=== PATIENT | female | born 1990 | race Caucasian/White ===

== ENCOUNTER 2019-06-11 21:24 | Inpatient (IN) | payer OTHER ==
--- NOTE | 2019-06-11 21:49 | PDOC ---
Rapid Medical Evaluation Chief Complaint: Bite Time Seen by Provider: 06/11/19 21:41 Medical Evaluation: 06/11/19 21:42 28 year old female with redness and swelling to left lower quadrant with erythema, warmth and swelling with pain. patient noted to be febrile. A: abdominal cellulitis p: labs Discharge Disposition - Diagnosis Cellulitis of left abdominal wall - Referrals - Patient Instructions - Post Discharge Activity
[2019-06-11] MEDS ORDERED: SODIUM CHLORIDE 0.9% 500 ML INFUS.BAG IV ONE (21:53)
[2019-06-11] MEDS ORDERED: ACETAMINOPHEN 500 MG TABLET (FP) PO ONE (21:54)
[2019-06-11] MEDS ORDERED: SODIUM CHLORIDE 2,654 ML IV ONE (21:56)
[2019-06-11] MEDS ORDERED: ACETAMINOPHEN 325 MG TABLET (FP) ONE (21:59)
--- NOTE | 2019-06-11 22:46 | PDOC ---
Attending Attestation - Resident Resident Name: Julian Holland - ED Attending Attestation I have performed the following: I have examined & evaluated the patient, The case was reviewed & discussed with the resident, I agree w/resident's findings & plan, Exceptions are as noted - HPI HPI: 06/11/19 22:40 28F PMH here for evaluation of insect bite. Pt states that she noted a lesion on the skin overlying her LLQ, she wasn't sure if it was a pimple or a bug bite. Lesion progressed, produced purulent drainage and is now surround by erythema that has rapidly progressed since this morning. Denies f/c, n/v, d/c, or other complaints. - Physicial Exam PE: 06/11/19 22:42 Pt distressed, AOx3 LLQ of abdomen with draining lesion, indurated, +fluctuance, surrounded by area of erythema approximately 10cm in radius centered on lesion - Medical Decision Making 06/11/19 22:47 Abdominal wall abscess with surrounding cellulitis f/u labs start abx admit
[2019-06-11 22:59] LABS: HEMATOCRIT 37.7 % (32.4-45.2); HEMOGLOBIN 12.6 GM/dL (10.7-15.3); MCH 31.6 pg (25.7-33.7); MCHC 33.4 g/dl (32.0-36.0); MEAN CELL VOLUME 94.6 fl (80-96); MEAN PLT VOLUME 9.8 fl (7.5-11.1); PLATELET COUNT 205 K/MM3 (134-434); RBC 3.99 M/mm3 (3.60-5.2); RDW 13.5 % (11.6-15.6); WHITE BLOOD COUNT 16.1 K/mm3 (4.0-10.0)
--- NOTE | 2019-06-11 23:06 | PDOC ---
History of Present Illness - General Chief Complaint: Wound Stated Complaint: INSECT BITE Time Seen by Provider: 06/11/19 21:41 History Source: Patient Exam Limitations: No Limitations - History of Present Illness Initial Comments: Johanna Damon is a 28 yo obese F w a pmh of polysubstance abuse and IVDU currently on Buprenorphine who presents to the ER with an extremely painful red lesion on her abdomen. The patient states that she was bit by a spider 2 days ago after which the bite became inflamed and looked like a pimple. The patient states she popped the pimple and a significant amount of pus came out. The patient came to the ER this morning for her bite but then decided to leave. She nor presents to the ER tonight because the lesion has enlarged significant;y and there is a large surrounding area of warmth and erythema that is painful and looks infected. Here in the ER the patient states she has a fever and now feels like her heart is racing. PCP: None PSH: None reported Social Hx: Former IVDU now on buprenorphine, daily smoker, marijuana user Allergies: NKA, NKDA Past History - Past Medical History Allergies/Adverse Reactions: Allergies Allergy/AdvReac Type Severity Reaction Status Date / Time No Known Allergies Allergy Verified 06/11/19 21:45 - Psycho Social/Smoking Cessation Hx Smoking History: Current every day smoker Number of Cigarettes Smoked Daily: 20 Information on smoking cessation initiated: No Hx Alcohol Use: No Drug/Substance Use Hx: No Review of Systems - Review of Systems Able to Perform ROS?: Yes Comments:: CONSTITUTIONAL: Present: Fever, chills Absent: no fatigue EYES: Absent: visual changes ENT: Absent: ear pain, no sore throat CARDIOVASCULAR: Absent: chest pain, no palpitations RESPIRATORY: Absent: cough, no SOB GI: Absent: abdominal pain, no nausea, no vomiting, no constipation, no diarrhea GENITOURINARY: Absent: dysuria, no frequency, no hematuria MUSKULOSKELETAL: Absent: back pain, no arthralgia, no myalgia SKIN: Present: rash NEURO: Absent: headache *Physical Exam - Vital Signs Last Vital Signs Temp Pulse Resp BP Pulse Ox 101.1 F H 120 H 18 142/97 100 06/11/19 21:42 06/11/19 21:42 06/11/19 21:42 06/11/19 21:42 06/11/19 21:42 - Physical Exam Comments: GENERAL: Well-appearing, well-nourished. No apparent distress. HEENT: Normocephalic, atraumatic. PERRL, EOM intact. CARDIOVASCULAR: Tachycardic rate. Normal S1, S2. Regular rhythm. PULMONARY: No evidence of respiratory distress. Lungs clear to auscultation bilaterally. No wheezing, rales or rhonchi. ABDOMEN: There is a large area of erythema in the left lower quadrant of the abdomen with a central area of induration and fluctuance. EXTREMITIES: Normal ROM in all four extremities. No gross deformities. SKIN: Warm, dry. NEUROLOGICAL: No focal neurological deficits. Procedures - Bedside Ultrasound Other: Vascular Remarks: Patient is an extremely hard IV access. US guided 20 gauge IV placed in the patient's Right brachial vein. ED Treatment Course - LABORATORY CBC & Chemistry Diagram: 06/11/19 22:40 06/11/19 22:40 - ADDITIONAL ORDERS Additional order review: 06/11/19 22:40 RBC 3.99 MCV 94.6 MCHC 33.4 RDW 13.5 MPV 9.8 - Medications Given in the ED: ED Medications Discontinued Medications Generic Name Dose Route Start Last Admin Trade Name Freq PRN Reason Stop Dose Admin Acetaminophen 1,000 mg 06/11/19 21:54 06/11/19 22:06 Tylenol - PO 06/11/19 21:55 1,000 mg ONCE ONE Administration Sodium Chloride 1,000 ml 06/11/19 21:53 06/11/19 22:55 Normal Saline - IV 06/11/19 21:54 1,000 ml ONCE ONE Administration Medical Decision Making - Medical Decision Making Johanna Damon is a 28 yo obese F w a pmh of polysubstance abuse and IVDU currently on Buprenorphine who presents to the ER with an extremely painful red lesion on her abdomen. The patient states that she was bit by a spider 2 days ago after which the bite became inflamed and looked like a pimple. The patient states she popped the pimple and a significant amount of pus came out. The patient came to the ER this morning for her bite but then decided to leave. She nor presents to the ER tonight because the lesion has enlarged significant;y and there is a large surrounding area of warmth and erythema that is painful and looks infected. Here in the ER the patient states she has a fever and now feels like her heart is racing. Vital Signs Temp Pulse Resp BP Pulse Ox 101.1 F H 120 H 18 142/97 100 06/11/19 21:42 06/11/19 21:42 06/11/19 21:42 06/11/19 21:42 06/11/19 21:42 DDx IBNLT: Sepsis, Abscess, cellulitis, MRSA, electrolyte/metabolic disturbance Plan: ED adult sepsis workup, Abx, Admit. labs: CBC,CMP WBC 16.1 K/mm3 (4.0-10.0) H 06/11/19 22:40 RBC 3.99 M/mm3 (3.60-5.2) 06/11/19 22:40 Hgb 12.6 GM/dL (10.7-15.3) 06/11/19 22:40 Hct 37.7 % (32.4-45.2) 06/11/19 22:40 MCV 94.6 fl (80-96) 06/11/19 22:40 MCH 31.6 pg (25.7-33.7) 06/11/19 22:40 MCHC 33.4 g/dl (32.0-36.0) 06/11/19 22:40 RDW 13.5 % (11.6-15.6) 06/11/19 22:40 Plt Count 205 K/MM3 (134-434) 06/11/19 22:40 MPV 9.8 fl (7.5-11.1) 06/11/19 22:40 Sodium 136 mmol/L (136-145) 06/11/19 22:40 Potassium 3.7 mmol/L (3.5-5.1) 06/11/19 22:40 Chloride 99 mmol/L (98-107) 06/11/19 22:40 Carbon Dioxide 28 mmol/L (21-32) 06/11/19 22:40 Anion Gap 8 MMOL/L (8-16) 06/11/19 22:40 BUN 11.3 mg/dL (7-18) 06/11/19 22:40 Creatinine 0.6 mg/dL (0.55-1.3) 06/11/19 22:40 Est GFR (CKD-EPI)AfAm 142.76 06/11/19 22:40 Est GFR (CKD-EPI)NonAf 123.17 06/11/19 22:40 Random Glucose 111 mg/dL (74-106) H 06/11/19 22:40 Lactic Acid 1.1 mmol/L (0.4-2.0) 06/11/19 22:40 Calcium 8.8 mg/dL (8.5-10.1) 06/11/19 22:40 Total Bilirubin 0.9 mg/dL (0.2-1) 06/11/19 22:40 AST 19 U/L (15-37) 06/11/19 22:40 ALT 26 U/L (13-61) 06/11/19 22:40 Alkaline Phosphatase 73 U/L (45-117) 06/11/19 22:40 Total Protein 6.9 g/dl (6.4-8.2) 06/11/19 22:40 Albumin 3.6 g/dl (3.4-5.0) 06/11/19 22:40 Dispo: Admit to hospital - Signing out patient to Dr. Sanders to complete admission to hospital Discharge - Discharge Information Problems reviewed: Yes Clinical Impression/Diagnosis: Cellulitis of left abdominal wall, Abscess Sepsis Qualifiers: Sepsis type: sepsis due to unspecified organism Sepsis acute organ dysfunction status: without acute organ dysfunction Qualified Code(s): A41.9 - Sepsis, unspecified organism Condition: Stable - Admission Yes - Follow up/Referral - Patient Discharge Instructions - Post Discharge Activity
[2019-06-11 23:08] LABS: INR 1.18 (0.83-1.09)
[2019-06-11] MEDS ORDERED: PIPERACILLIN/TAZOB 4.5 GM 4.5 GM in DEXTROSE 5%-WATER 100 ML IVPB ONE (23:17)
[2019-06-11] MEDS ORDERED: VANCOMYCIN 1,000 MG in DEXTROSE 5%-WATER - 250 ML IVPB ONE (23:17)
[2019-06-11 23:21] LABS: ALBUMIN 3.6 g/dl (3.4-5.0); BILIRUBIN,TOTAL 0.9 mg/dL (0.2-1); BLOOD UREA NITROGEN 11.3 mg/dL (7-18); CALCIUM 8.8 mg/dL (8.5-10.1); CREATININE 0.6 mg/dL (0.55-1.3); POTASSIUM 3.7 mmol/L (3.5-5.1); TOT PROT 6.9 g/dl (6.4-8.2)
[2019-06-11] MEDS ORDERED: PIPERACILLIN/TAZOB 4.5 GM 4.5 GM/100 ML BAG IVPB ONE (23:27)
[2019-06-12 00:35] LABS: EPI CELLS 10.9 /HPF (0-5/HPF); HYALINE CASTS 10 /lpf (0-8); PH,URINE 5.5 (5.0-8.0); URINE APPEARANCE CLOUDY; URINE BACTERIA 445.3 /hpf (NEGATIVE); URINE BILIRUBIN 1+ (NEGATIVE); URINE COLOR DK YELLOW; URINE GLUCOSE (UA) NEGATIVE (NEGATIVE); URINE KETONE TRACE (NEGATIVE); URINE LEUK ESTERASE 1+ (NEGATIVE); URINE NITRITE POSITIVE (NEGATIVE); URINE PROTEIN TRACE (NEGATIVE); URINE RBC 2 /hpf (0-4); URINE WBC 10 /hpf (0-5)
--- NOTE | 2019-06-12 00:51 | PN ---
Teaching Attending Note Name of Resident: Zack Connor ATTENDING PHYSICIAN STATEMENT I saw and evaluated the patient. I reviewed the resident's note and discussed the case with the resident. I agree with the resident's findings and plan as documented. SUBJECTIVE: Patient is a 28 year old woman with PMH of Polysubstance abuse and IVDU currently on Buprenorphine who presents to the ER with an extremely painful red lesion on her abdomen. The patient states that she was bitten by a spider 2 days ago after which the bite became inflamed and looked like a pimple. The patient states she popped the pimple and a significant amount of pus came out. The patient came to the ER this morning for her bite but then decided to leave. She states that the lesion has enlarged significantly and there is a large surrounding area of warmth and erythema that is painful. In the ER the patient states she has a fever and now feels like her heart is racing. Denies injecting drugs into her abdomen. She is a daily smoker and uses marijuana. LMP was about 5 weeks ago - she has irregular menses and test is negative. Father had leukemia. OBJECTIVE: Alert Vital Signs Period Temp Pulse Resp BP Sys/Martinez Pulse Ox Last 24 Hr 98.8 F-101.1 F 85-120 18-18 103-142/58-97 96-100 HEENT: No Jaundice, eye redness or discharge, PERRLA, EOMI. Normocephalic, atraumatic. External ears are normal and hearing is grossly intact. No nasal discharge. Neck: Supple, nontender. No palpable adenopathy or thyromegaly. No JVD Chest: Good effort. Clear to auscultation and percussion. Heart: Regular. No S3, rub or murmur Abdomen: Not distended, soft, and no HSM. No rebound or guarding. Normal bowel sounds. LLQ of abdomen with draining lesion, indurated, and fluctuant - surrounded by area of erythema in lower half of abdomen. approximately 10cm in radius centered on lesion Ext: Peripheral pulses intact. No leg edema. Skin: Warm and dry. No petechiae, rash or ecchymosis. Neuro: Alert. Oriented x3. CN 2-12 grossly intact. Sensation grossly intact in all four extremities and DTR are symmetric. Psych: Appropriate mood and affect. Good insight. Abnormal Lab Results 06/11/19 06/11/19 06/11/19 22:40 22:40 22:40 WBC 16.1 H PT with INR 14.00 H INR 1.18 H Random Glucose 111 H Urine Ketones Urine Nitrite Urine Bilirubin Ur Leukocyte Esterase 06/12/19 00:00 WBC PT with INR INR Random Glucose Urine Ketones Trace H Urine Nitrite Positive H Urine Bilirubin 1+ H Ur Leukocyte Esterase 1+ H ASSESSMENT AND PLAN: 1. Abdominal wall abscess and cellulitis - will get a CT scan to rule out significant abscess collection. Also has features of UTI. Will treat with IV vancomycin and Rocephin and if blood culture grows gram+ve organism, will get ECHO to rule out vegetations. Will continue comprehensive care for all of patients comorbid conditions. EKG shows NSR with no significant ST-T wave changes. Consult ID. If CT shows abscess, consult surgery. 2. Tobacco Use Counseled on risks associated with tobacco use. We will provide patient all the necessary assistance to facilitate smoking cessation and prescribe Nicotine patch. 3. Obesity Counseled on the risks associated with obesity. Will provide patient all the necessary assistance, counseling and positive reinforcement to facilitate weight loss. Consult hand bander. 4. Polysubstance/Alcohol abuse - Monitor for [facility] withdrawal. [facility] and do neurochecks. Implement seizure, fall and aspiration precautions. Treat with thiamine and folic acid and monitor electrolytes (Ca,Mg,K,P). Counseled patient about abstaining from alcohol and illicit drugs. Will consult health care specialist and refer to alcohol detox upon discharge. 5. DVT prophylaxis - Lovenox 40 mg SQ q 24 hours. 6. Advance directives - Full code
--- NOTE | 2019-06-12 00:57 | PDOC ---
*Physical Exam - Vital Signs Last Vital Signs Temp Pulse Resp BP Pulse Ox 98.8 F 85 18 103/58 L 96 06/12/19 00:46 06/12/19 00:46 06/12/19 00:46 06/12/19 00:46 06/12/19 00:46 ED Treatment Course - LABORATORY CBC & Chemistry Diagram: 06/11/19 22:40 06/11/19 22:40 - ADDITIONAL ORDERS Additional order review: Laboratory Results 06/12/19 06/12/19 06/11/19 00:00 00:00 22:40 PT with INR INR PTT (Actin FS) Sodium Potassium Chloride Carbon Dioxide Anion Gap BUN Creatinine Est GFR (CKD-EPI)AfAm Est GFR (CKD-EPI)NonAf Random Glucose Lactic Acid Calcium Total Bilirubin AST ALT Alkaline Phosphatase Total Protein Albumin Urine Color Dk yellow Urine Appearance Cloudy Urine pH 5.5 Ur Specific [place] 1.028 Urine Protein Trace Urine Glucose (UA) Negative Urine Ketones Trace H Urine Blood Negative Urine Nitrite Positive H Urine Bilirubin 1+ H Urine Urobilinogen 1.0 Ur Leukocyte Esterase 1+ H Urine WBC (Auto) 10 Urine RBC (Auto) 2 Urine Casts (Auto) 10 U Epithel Cells (Auto) 10.9 Urine Bacteria (Auto) 445.3 Urine HCG, Qual Negative Blood Type O POSITIVE Antibody Screen Negative 06/11/19 06/11/19 06/11/19 22:40 22:40 22:40 PT with INR 14.00 H INR 1.18 H PTT (Actin FS) Sodium 136 Potassium 3.7 Chloride 99 Carbon Dioxide 28 Anion Gap 8 BUN 11.3 Creatinine 0.6 Est GFR (CKD-EPI)AfAm 142.76 Est GFR (CKD-EPI)NonAf 123.17 Random Glucose 111 H Lactic Acid 1.1 Calcium 8.8 Total Bilirubin 0.9 AST 19 ALT 26 Alkaline Phosphatase 73 Total Protein 6.9 Albumin 3.6 Urine Color Urine Appearance Urine pH Ur Specific [place] Urine Protein Urine Glucose (UA) Urine Ketones Urine Blood Urine Nitrite Urine Bilirubin Urine Urobilinogen Ur Leukocyte Esterase Urine WBC (Auto) Urine RBC (Auto) Urine Casts (Auto) U Epithel Cells (Auto) Urine Bacteria (Auto) Urine HCG, Qual Blood Type Antibody Screen 06/11/19 22:40 PT with INR INR PTT (Actin FS) 32.9 Sodium Potassium Chloride Carbon Dioxide Anion Gap BUN Creatinine Est GFR (CKD-EPI)AfAm Est GFR (CKD-EPI)NonAf Random Glucose Lactic Acid Calcium Total Bilirubin AST ALT Alkaline Phosphatase Total Protein Albumin Urine Color Urine Appearance Urine pH Ur Specific [place] Urine Protein Urine Glucose (UA) Urine Ketones Urine Blood Urine Nitrite Urine Bilirubin Urine Urobilinogen Ur Leukocyte Esterase Urine WBC (Auto) Urine RBC (Auto) Urine Casts (Auto) U Epithel Cells (Auto) Urine Bacteria (Auto) Urine HCG, Qual Blood Type Antibody Screen 06/11/19 22:40 RBC 3.99 MCV 94.6 MCHC 33.4 RDW 13.5 MPV 9.8 - RADIOLOGY Radiology Studies Ordered: Category Date Time Status CHEST X-RAY PORTABLE* [RAD] Stat Radiology 06/11/19 22:41 Ordered - Medications Given in the ED: ED Medications Discontinued Medications Generic Name Dose Route Start Last Admin Trade Name Freq PRN Reason Stop Dose Admin Acetaminophen 1,000 mg 06/11/19 21:54 06/11/19 22:06 Tylenol - PO 06/11/19 21:55 1,000 mg ONCE ONE Administration Piperacillin Sod/Tazobactam 100 mls @ 200 mls/hr 06/11/19 23:17 06/11/19 23: 30 Sod 4.5 gm/ Dextrose IVPB 06/11/19 23:46 200 mls/hr ONCE ONE Administration Protocol Sodium Chloride 1,000 ml 06/11/19 21:53 06/11/19 22:55 Normal Saline - IV 06/11/19 21:54 1,000 ml ONCE ONE Administration Medical Decision Making - Medical Decision Making 06/12/19 00:54 Patient signout taken from Dr. Holland. Patient is a 28 yo female w/ pmh of prior IVDU (on buprenorphine) who presents for evaluation of abdominal abcess. Patient evaluated with sepsis workup and started on antibiotics. Patient pending admission to inpatient team for ID consult and IV ABX. 06/12/19 00:58 Patient admitted to hospitalist for further evaluation. Discharge - Discharge Information Problems reviewed: Yes Clinical Impression/Diagnosis: Cellulitis of left abdominal wall, Abscess Sepsis Qualifiers: Sepsis type: sepsis due to unspecified organism Sepsis acute organ dysfunction status: without acute organ dysfunction Qualified Code(s): A41.9 - Sepsis, unspecified organism Condition: Stable - Admission Yes - Follow up/Referral - Patient Discharge Instructions - Post Discharge Activity
[2019-06-12] MEDS ORDERED: VANCOMYCIN 1 GRAM (PRE-DOCKED) 1,000 MG/250 ML BAG IVPB ONE (01:00)
[2019-06-12] MEDS ORDERED: SENNOSIDES 8.6MG TABLET (FP) PO PRN (02:22)
[2019-06-12 02:53] VITALS: BMI 32.5
[2019-06-12] MEDS ORDERED: ACETAMINOPHEN 500 MG TABLET (FP) PO ONE (03:31)
--- NOTE | 2019-06-12 04:03 | HP ---
CHIEF COMPLAINT: abdominal abscess PCP: none HISTORY OF PRESENT ILLNESS: 28 y.o. F PMH IVDA (heroin) last used yesterday presenting with abdominal pain. The patient says about 1.5 weeks ago she was bit by a spider which subsequently formed a small red dot. The area began to become eythematous and pruritic. Over the next week the site of the bite began to form an abscess productive of yellow pus and blood. Patient ignored the pain hoping it would go away. Earlier today she was upstairs at [facility] visiting her who is a patient here when the abdominal pain became unbearable. Pt came down to ED for evaluation. Denies trauma or drug injection to the abdomen/ denies recent illness. ER course was notable for: (1) Vanc, Zosyn (2) 1L NS bolus (3) Recent Travel: denies PAST MEDICAL HISTORY: as per HPI PAST SURGICAL HISTORY: none Social History: Does not work. Lives w/ and sister in law. Smoking: yes 16 pack years Alcohol:denies Drugs: heroine- used to use IV, now only snorts- has not used IV in 5-6 years Allergies No Known Allergies Allergy (Verified 06/11/19 21:45) HOME MEDICATIONS: REVIEW OF SYSTEMS CONSTITUTIONAL: Absent: fever, chills, diaphoresis, generalized weakness, malaise, loss of appetite, weight change HEENT: Absent: rhinorrhea, nasal congestion, throat pain, throat swelling, difficulty swallowing, mouth swelling, ear pain, eye pain, visual changes CARDIOVASCULAR: Absent: chest pain, syncope, palpitations, irregular heart rate, lightheadedness , peripheral edema RESPIRATORY: Absent: cough, shortness of breath, dyspnea with exertion, orthopnea, wheezing, stridor, hemoptysis GASTROINTESTINAL: Absent: abdominal pain, abdominal distension, nausea, vomiting, diarrhea, constipation, melena, hematochezia GENITOURINARY: Absent: dysuria, frequency, urgency, hesitancy, hematuria, flank pain, genital pain MUSCULOSKELETAL: Absent: myalgia, arthralgia, joint swelling, back pain, neck pain SKIN: Absent: rash, itching, pallor HEMATOLOGIC/IMMUNOLOGIC: Absent: easy bleeding, easy bruising, lymphadenopathy, frequent infections ENDOCRINE: Absent: unexplained weight gain, unexplained weight loss, heat intolerance, cold intolerance NEUROLOGIC: Absent: headache, focal weakness or paresthesias, dizziness, unsteady gait, seizure, mental status changes, bladder or bowel incontinence PSYCHIATRIC: Absent: anxiety, depression, suicidal or homicidal ideation, hallucinations. PHYSICAL EXAMINATION Vital Signs - 24 hr 06/11/19 06/12/19 06/12/19 21:42 00:46 02:50 Temperature 101.1 F H 98.8 F 98.4 F Pulse Rate 120 H 83 Pulse Rate [ 85 Right] Respiratory 18 18 18 Rate Blood Pressure 142/97 100/66 Blood Pressure 103/58 L [Left Arm] O2 Sat by Pulse 100 96 Oximetry (%) GENERAL: AOx3 in mild distress d/t abd pain HEENT: No JVD. MMM. Sclera anicteric. No conjunctival injection LUNGS: CTABL. No incr work of breathing. HEART: RRR S1S2 heard no murmurs. ABDOMEN: Soft, nondistended. Exquisitely tender to palpation across lower abdomen. LLQ abscess present: erythematous, borders are well demarcated acros entirety of lower abdomen. Unable to assess if + for drainiage as patient was so tender to touch- says she now has white pus MUSCULOSKELETAL: Good ROM all extremities. EXTR: 2+ pulses present b/l UE & LE. No edema noted. PSYCHIATRIC: Appropriate mood and affect. SKIN: Multiple tattoos present on extremities. No rashes. No track segura. Laboratory Results - last 24 hr 06/11/19 06/11/19 06/11/19 22:40 22:40 22:40 WBC 16.1 H RBC 3.99 Hgb 12.6 Hct 37.7 MCV 94.6 MCH 31.6 MCHC 33.4 RDW 13.5 Plt Count 205 MPV 9.8 PT with INR INR PTT (Actin FS) 32.9 Sodium 136 Potassium 3.7 Chloride 99 Carbon Dioxide 28 Anion Gap 8 BUN 11.3 Creatinine 0.6 Est GFR (CKD-EPI)AfAm 142.76 Est GFR (CKD-EPI)NonAf 123.17 Random Glucose 111 H Lactic Acid Calcium 8.8 Total Bilirubin 0.9 AST 19 ALT 26 Alkaline Phosphatase 73 Total Protein 6.9 Albumin 3.6 Urine Color Urine Appearance Urine pH Ur Specific [place] Urine Protein Urine Glucose (UA) Urine Ketones Urine Blood Urine Nitrite Urine Bilirubin Urine Urobilinogen Ur Leukocyte Esterase Urine WBC (Auto) Urine RBC (Auto) Urine Casts (Auto) U Epithel Cells (Auto) Urine Bacteria (Auto) Urine HCG, Qual Blood Type Antibody Screen 06/11/19 06/11/19 06/11/19 22:40 22:40 22:40 WBC RBC Hgb Hct MCV MCH MCHC RDW Plt Count MPV PT with INR 14.00 H INR 1.18 H PTT (Actin FS) Sodium Potassium Chloride Carbon Dioxide Anion Gap BUN Creatinine Est GFR (CKD-EPI)AfAm Est GFR (CKD-EPI)NonAf Random Glucose Lactic Acid 1.1 Calcium Total Bilirubin AST ALT Alkaline Phosphatase Total Protein Albumin Urine Color Urine Appearance Urine pH Ur Specific [place] Urine Protein Urine Glucose (UA) Urine Ketones Urine Blood Urine Nitrite Urine Bilirubin Urine Urobilinogen Ur Leukocyte Esterase Urine WBC (Auto) Urine RBC (Auto) Urine Casts (Auto) U Epithel Cells (Auto) Urine Bacteria (Auto) Urine HCG, Qual Blood Type O POSITIVE Antibody Screen Negative 06/12/19 06/12/19 00:00 00:00 WBC RBC Hgb Hct MCV MCH MCHC RDW Plt Count MPV PT with INR INR PTT (Actin FS) Sodium Potassium Chloride Carbon Dioxide Anion Gap BUN Creatinine Est GFR (CKD-EPI)AfAm Est GFR (CKD-EPI)NonAf Random Glucose Lactic Acid Calcium Total Bilirubin AST ALT Alkaline Phosphatase Total Protein Albumin Urine Color Dk yellow Urine Appearance Cloudy Urine pH 5.5 Ur Specific [place] 1.028 Urine Protein Trace Urine Glucose (UA) Negative Urine Ketones Trace H Urine Blood Negative Urine Nitrite Positive H Urine Bilirubin 1+ H Urine Urobilinogen 1.0 Ur Leukocyte Esterase 1+ H Urine WBC (Auto) 10 Urine RBC (Auto) 2 Urine Casts (Auto) 10 U Epithel Cells (Auto) 10.9 Urine Bacteria (Auto) 445.3 Urine HCG, Qual Negative Blood Type Antibody Screen ASSESSMENT/PLAN: 28 y.o. F PMH IVDA (heroin) presenting for abdominal pain #Abdominal wall abscess with cellulitis -Started Vanc, Ceftriaxone -F/u blood & Urine cx's; f.u with echo if blood cx's are + -F/u CT abd/ pelvis- consult surgery is + for abscess -Dr. Blackmon consulted #Heroin abuse -Last use yesterday -Given buprenorphine in the past but has not taken it -Fall, aspiration, seizure precautions -COWS score 1 -Miralax, senna for constipation #Nicotine dependence -nicotine patch -Counselled on health risks associated w/ cigarette smoking including but not limited to lung disease, cardiovascular disease, . #Asymptomatic UTI -No dysuria/ hematuria/ polyuria -Pt on abx for abd abscess & cellulitis -Monitor for urinary symptoms #FEN -No standing fluids -Monitor electrolytes -NPO #DVT PPX -LVX 40mg SQ daily Visit type - Emergency Visit Emergency Visit: Yes ED Registration Date: 06/11/19 Care time: The patient presented to the Emergency Department on the above date and was hospitalized for further evaluation of their emergent condition. - New Patient This patient is new to me today: Yes Date on this admission: 06/12/19 - Critical Care Critical Care patient: No ATTENDING PHYSICIAN STATEMENT I saw and evaluated the patient. I reviewed the resident's note and discussed the case with the resident. I agree with the resident's findings and plan as documented. SUBJECTIVE: OBJECTIVE: ASSESSMENT AND PLAN:
[2019-06-12] MEDS ORDERED: SODIUM CHLORIDE 1,000 ML IV SCH (07:00)
[2019-06-12] MEDS: SODIUM CHLORIDE 1,000 ML IV SCH (08:48)
[2019-06-12] MEDS: NICOTINE 14 MG/24 HOURS TOPICAL PATCH TD SCH (09:40)
[2019-06-12] MEDS: ENOXAPARIN NA (PORCINE) 40 MG/0.4 ML DISP.SYRIN SQ SCH (09:40)
[2019-06-12] MEDS: POLYETHYLENE GLYCOL 3350 119 GM BTL PO SCH ×2 (09:40→21:50)
[2019-06-12] MEDS ORDERED: CEFTRIAXONE 1 GM in DEXTROSE 5%-WATER - 50 ML IVPB SCH ×2 (10:00→13:00)
[2019-06-12] MEDS ORDERED: VANCOMYCIN 1 GM in D5W (PRE-DOCKED) 1,000 MG/250 ML IVPB SCH ×2 (10:00→13:00)
[2019-06-12] MEDS ORDERED: VANCOMYCIN 1 GRAM (PRE-DOCKED) 1,000 MG/250 ML BAG IVPB SCH (10:00)
--- NOTE | 2019-06-12 12:06 | CON.ID ---
Consult Consult Specialty:: infectious diseases Referred by:: Mariela Reason for Consultation:: abd wall abscess,cellulitis - History of Present Illness Chief Complaint: abd swelling redness and abscess History of Present Illness: 28 y.o. F PMH IVDA (heroin) last used yesterday presenting with abdominal pain. The patient says about 1.5 weeks ago she was bit by a spider which subsequently formed a small red dot. The area began to become eythematous and pruritic. Over the next week the site of the bite began to form an abscess productive of yellow pus and blood. Patient ignored the pain hoping it would go away. Earlier today she was upstairs at [facility] visiting her who is a patient here when the abdominal pain became unbearable. Pt came down to ED for evaluation. Denies trauma or drug injection to the abdomen/ denies recent illness. still with abd pain - History Source History Provided By: Patient Limitations to Obtaining History: No Limitations - Alcohol/Substance Use Hx Alcohol Use: No - Smoking History Smoking history: Current every day smoker Aproximately how many cigarettes per day: 20 Home Medications - Allergies Allergies/Adverse Reactions: Allergies Allergy/AdvReac Type Severity Reaction Status Date / Time No Known Allergies Allergy Verified 06/11/19 21:45 - Home Medications Home Medications: Ambulatory Orders NK [No Known Home Medication] 06/12/19 Review of Systems - Review of Systems Constitutional: reports: No Symptoms Eyes: reports: No Symptoms HENT: reports: No Symptoms Neck: reports: No Symptoms Cardiovascular: reports: No Symptoms Respiratory: reports: No Symptoms Gastrointestinal: reports: Abdominal Pain, Other Genitourinary: reports: No Symptoms Musculoskeletal: reports: No Symptoms Integumentary: reports: Change in Color, Erythema, Wound Neurological: reports: No Symptoms Endocrine: reports: No Symptoms Hematology/Lymphatic: reports: No Symptoms Psychiatric: reports: No Symptoms Physical Exam Vital Signs: Vital Signs Temperature 98.7 F 06/12/19 09:30 Pulse Rate 68 06/12/19 09:30 Respiratory Rate 18 06/12/19 09:30 Blood Pressure 102/53 L 06/12/19 09:30 O2 Sat by Pulse Oximetry (%) 98 06/12/19 09:00 Constitutional: Yes: Well Nourished, Calm, Mild Distress, Obese Eyes: Yes: Conjunctiva Clear HENT: Yes: Atraumatic, Normocephalic Cardiovascular: Yes: Regular Rate and Rhythm Respiratory: Yes: Regular, CTA Bilaterally Gastrointestinal: Yes: Normal Bowel Sounds, Soft Musculoskeletal: Yes: WNL Extremities: Yes: WNL Wound/Incision: Yes: Open to air, Other (abd wall cellulitis,wound draining painful) Labs: CBC, BMP 06/11/19 22:40 06/11/19 22:40 Imaging - Results Chest X-ray: Report Reviewed, Image Reviewed Assessment/Plan 28 y.o. F PMH IVDA (heroin) presenting for abdominal pain Abdominal wall abscess cellulitis Heroin abuse Nicotine dependence pain plan will continue vanco and zosyn await for all cx reports surgery consult rest as per the team
[2019-06-12] MEDS ORDERED: VANCOMYCIN HCL 1,250 MG in DEXTROSE 5%-WATER - 250 ML IVPB SCH (12:15)
[2019-06-12] MEDS ORDERED: PIPERACILLIN/TAZOBACTAM 3.375 GM VIAL IVPB ONE ×2 (12:32→16:55)
[2019-06-12] MEDS ORDERED: DEXTROSE 5%-WATER - 50 ML IVPB ONE ×2 (12:32→16:55)
[2019-06-12] MEDS: PIPERACILLIN/TAZOB 3.375 GM 3.375 GM in DEXTROSE 5%-WATER - 50 ML IVPB SCH ×2 (12:33→17:00)
--- NOTE | 2019-06-12 13:11 | PN ---
"[facility] Progress Note (SOAP) Subjective: 28 y.o. female pt referred for consultation , pt reports heroin use since age 16 , current daily use 1 bundle via inhalation , IVDU latest used 2.5 years ago , longest sobriety [id number] while incarcerated , denies other illicits or etoh , latest use yesterday prior to hospital admission for abscess abdomen 2 /2 spider bite , pt states currently considering I & D . pt reports nausea, chills , muscle aches, anxiety, anticipating worsening withdrawal symptoms, states has not been taking Suboxone as rx'd 2/2 ongoing heroin use , and untoward side-effect w/ buprenorophine . Denies MMTP participation at any time . Reports recent incarceration [place] 2/2 non- drug related charges , had court today . No minor children in her care. Active Medications Acetaminophen (Ofirmev Injection -) 1,000 mg IVPB Q6H PRN PRN Reason: PAIN LEVEL 1 - 3 Enoxaparin Sodium (Lovenox -) 40 mg SQ DAILY [facility] Last Admin: 06/12/19 09:40 Dose: Not Given Sodium Chloride (Normal Saline -) 1,000 mls @ 75 mls/hr IV ASDIR GEORGE Last Admin: 06/12/19 08:48 Dose: 75 mls/hr Piperacillin Sod/Tazobactam (Sod 3.375 gm/ Dextrose) 50 mls @ 100 mls/hr IVPB Q8H-IV GEORGE; Protocol Last Admin: 06/12/19 12:33 Dose: 100 mls/hr Vancomycin HCl 1,250 mg/ (Dextrose) 250 mls @ 166.667 mls/hr IVPB Q24H GEORGE; Protocol Nicotine (Nicoderm Patch -) 14 mg TD DAILY GEORGE Last Admin: 06/12/19 09:40 Dose: Not Given Polyethylene Glycol (Miralax (For Daily Use) -) 17 gm PO BID GEORGE Last Admin: 06/12/19 09:40 Dose: Not Given Senna (Senna -) 2 tab PO HS PRN PRN Reason: CONSTIPATION Objective: This report was requested by: Alana Ashby | Reference #: [id number] Others' Prescriptions Patient Name: Johanna Damon Date: 1990 Address: [address] [place] [address] [place] [address] Sex: Female Rx Written Rx Dispensed Drug Quantity Days Supply Prescriber Name 06/09/2019 06/10/2019 [facility] 05/[facility]2019 bup[facility]ine[facility]ox[facility] 8[facility]2 mg sl film [facility] 04/23/2019 suboxone 8 mg-2 mg sl film 90 [facility]/2019 03/31/2019 buprenorphine-naloxone 8-2 mg sl film 63 [facility]10[facility]2019 03/10/2019 buprenorphine[facility]ox[facility] 8[facility]2 mg sl film [facility] 02/03/2019 clonazepam 1 mg tablet 90 30 Cabrales, Jeb A 02/02/2019 02/03/2019 buprenorphine-naloxone 8-2 mg sl film 90 30 Cabrales, Jeb A 01/05/2019 01/05/2019 buprenorphine-naloxone 8-2 mg sl film 90 30 Cabrales, Jeb A 01/05/2019 01/05/2019 clonazepam 1 mg tablet 60 30 Cabrales, Jeb A 12/03/2018 12/04/2018 buprenorphine-naloxone 8-2 mg sl film 72 29 Carmelina Tinsley 11/06/2018 11/06/2018 suboxone 8 mg-2 mg sl film 72 29 Carmelina Tinsley Patient Name: Johanna Damon Date: 1990 Address: [address] [place] [id number] Sex: Female Rx Written Rx Dispensed Drug Quantity Days Supply Prescriber Name 03/13/2019 03/15/2019 chlordiazepoxide 25 mg capsule 18 3 Graciela Mccoy 02/18/2019 02/18/2019 chlordiazepoxide 25 mg capsule 18 3 Rodney Leann Patient Name: Johanna Damon Date: 1990 Address: [address] [place] [id number] Sex: Female Rx Written Rx Dispensed Drug Quantity Days Supply Prescriber Name 09/28/2018 09/28/2018 alprazolam 0.25 mg tablet 3 1 Jeronimo Quispe ( R-PA) 09/17/2018 09/17/2018 suboxone 8 mg-2 mg sl film 90 30 [facility] 06/12/19 13:10 CBC, BMP 06/11/19 22:40 06/11/19 22:40 Abnormal Lab Results 06/11/19 06/11/19 06/11/19 22:40 22:40 22:40 WBC 16.1 H PT with INR 14.00 H INR 1.18 H Random Glucose 111 H Urine Ketones Urine Nitrite Urine Bilirubin Ur Leukocyte Esterase 06/12/19 00:00 WBC PT with INR INR Random Glucose Urine Ketones Trace H Urine Nitrite Positive H Urine Bilirubin 1+ H Ur Leukocyte Esterase 1+ H Assessment: 06/12/19 13:35 opioid dependence Plan: pt interested in methadone taper , utox + opiates 06/12/19, methadone taper ordered ."
--- NOTE | 2019-06-12 14:06 | EKG ---
Test Reason : Blood Pressure : / mmHG Vent. Rate : 089 BPM Atrial Rate : 089 BPM P-R Int : 122 ms QRS Dur : 086 ms QT Int : 348 ms P-R-T Axes : 055 014 013 degrees QTc Int : 423 ms POOR DATA QUALITY, INTERPRETATION MAY BE ADVERSELY AFFECTED NORMAL SINUS RHYTHM NONSPECIFIC ST ABNORMALITY NO PREVIOUS ECGS AVAILABLE Confirmed by MYLES JOHNSON MD ([id number]) on 06/12/2019 2:06:20 PM Referred By: Confirmed By:MYLES JOHNSON MD
--- NOTE | 2019-06-12 14:24 | CONSULT ---
- Consultation REQUESTING PROVIDER: Mack MAKI CONSULT REQUEST: We have been asked to surgically evaluate this patient for an ABSSSI of the abdominal wall. PCP:Rodney Giron MD HISTORY OF PRESENT ILLNESS: Increasing pain and tenderness and warmth of the abdominal wall after alleged spider bite # days ago; she came to the ER for evaluation. PMHx: polysubstance abuse PSHx: none Home Medications Medication Instructions Recorded NK [No Known Home Medication] 06/12/19 Allergies Allergy/AdvReac Type Severity Reaction Status Date / Time No Known Allergies Allergy Verified 06/11/19 21:45 REVIEW OF SYSTEMS: CONSTITUTIONAL: Present: fever, chills, diaphoresis, generalized weakness, malaise, loss of appetite, weight change CARDIOVASCULAR: Absent: chest pain, syncope, palpitations, irregular heart rate, lightheadedness , peripheral edema RESPIRATORY: Absent: cough, shortness of breath, dyspnea with exertion, wheezing, stridor, hemoptysis GASTROINTESTINAL: Absent: abdominal pain, abdominal distension, nausea, vomiting, diarrhea, constipation, melena, hematochezia GENITOURINARY: Absent: dysuria, frequency, urgency, hesitancy, hematuria, flank pain, genital pain MUSCULOSKELETAL: Absent: myalgia, arthralgia, joint swelling, back pain, neck pain SKIN: Present: rash, itching, pallor HEMATOLOGIC/IMMUNOLOGIC: Absent: easy bleeding, easy bruising, lymphadenopathy NEUROLOGIC: Absent: headache, focal weakness, paresthesias, Present:dizziness, unsteady gait , mental status changes, bladder or bowel incontinence PSYCHIATRIC: Absent: anxiety, depression, suicidal or homicidal ideation, hallucinations. PHYSICAL EXAM: GENERAL: Awake, alert, and fully oriented, in acute distress. HEAD: Normal with no signs of trauma. EYES:sclera anicteric, conjunctiva clear. NECK: Normal ROM, supple without lymphadenopathy, JVD, or masses. ABDOMEN: Soft, nontender, not distended, normoactive bowel sounds, no guarding, no rebound, no masses. No organomegaly. MUSCULOSKELETAL: Normal ROM at all joints. No bony deformities or tenderness. No CVA tenderness. UPPER EXTREMITIES: 2+ pulses, warm, well-perfused. No cyanosis. Cap refill <2 seconds. No peripheral edema. LOWER EXTREMITIES: 2+ pulses, warm, well-perfused. No calf tenderness. No peripheral edema. NEUROLOGICAL: Normal speech, gait not observed. PSYCH: Cooperative. Good eye contact. Appropriate mood and affect. SKIN: ABSSSI of the left abdominal wall w/likely abscess and erythema and ttp. Vital Signs Temperature 98.7 F 06/12/19 09:30 Pulse Rate 68 06/12/19 09:30 Respiratory Rate 18 06/12/19 09:30 Blood Pressure 102/53 L 06/12/19 09:30 O2 Sat by Pulse Oximetry (%) 98 06/12/19 09:00 Lab Results WBC 16.1 K/mm3 (4.0-10.0) H 06/11/19 22:40 RBC 3.99 M/mm3 (3.60-5.2) 06/11/19 22:40 Hgb 12.6 GM/dL (10.7-15.3) 06/11/19 22:40 Hct 37.7 % (32.4-45.2) 06/11/19 22:40 MCV 94.6 fl (80-96) 06/11/19 22:40 MCHC 33.4 g/dl (32.0-36.0) 06/11/19 22:40 RDW 13.5 % (11.6-15.6) 06/11/19 22:40 Plt Count 205 K/MM3 (134-434) 06/11/19 22:40 Sodium 136 mmol/L (136-145) 06/11/19 22:40 Potassium 3.7 mmol/L (3.5-5.1) 06/11/19 22:40 Chloride 99 mmol/L (98-107) 06/11/19 22:40 Carbon Dioxide 28 mmol/L (21-32) 06/11/19 22:40 Anion Gap 8 MMOL/L (8-16) 06/11/19 22:40 BUN 11.3 mg/dL (7-18) 06/11/19 22:40 Creatinine 0.6 mg/dL (0.55-1.3) 06/11/19 22:40 Random Glucose 111 mg/dL (74-106) H 06/11/19 22:40 Calcium 8.8 mg/dL (8.5-10.1) 06/11/19 22:40 Blood Type O POSITIVE 06/11/19 22:40 Antibody Screen Negative 06/11/19 22:40 INR 1.18 (0.83-1.09) H 06/11/19 22:40 IMP:ABSSSI of the left lower abdominal wall PLAN: Suggest I and D; d/w patient who declined at the time of consultation; advise Behavioral Health evaluation. Gino Melton MD FACS
[2019-06-12 14:56] LABS: COCAINE, UR NEGATIVE ng/ml (CUTOFF=300); METHADONE, UR NEGATIVE ng/ml (CUTOFF=300); PHENCYCLIDINE,URINE NEGATIVE ng/ml (CUTOFF=25); URINE AMPHETAMINES NEGATIVE ng/ml (CUTOFF=500); URINE BARBITURATES NEGATIVE ng/ml (CUTOFF=200); URINE BENZODIAZEPINES NEGATIVE ng/ml (CUTOFF=200)
[2019-06-12 15:05] LABS: OPIATES, URI POSITIVE ng/ml (CUTOFF=300)
[2019-06-12] MEDS ORDERED: cloNIDine HCL 0.1 MG TABLET PO PRN (15:27)
--- NOTE | 2019-06-12 15:42 | PN ---
Teaching Attending Note Name of Resident: Cheryl Escobar ATTENDING PHYSICIAN STATEMENT I saw and evaluated the patient. I reviewed the resident's note and discussed the case with the resident. I agree with the resident's findings and plan as documented. SUBJECTIVE: Complains of LLQ abdominal wall pain/swelling/tenderness. No fever/ chills/nausea/vomiting. OBJECTIVE: Febrile, Tmax 101.1, Hemodynamically Stable. Last Vital Signs Temp Pulse Resp BP Pulse Ox 99.0 F 76 18 102/57 L 98 06/12/19 14:00 06/12/19 14:00 06/12/19 14:00 06/12/19 14:00 06/12/19 09:00 HEENT - Atraumatic, Normocephalic HEART - S1, S2, RRR LUNGS - clear to auscultation ABDOMEN - erythematous area with central region of fluctuance and pustular discharge, likely abscess EXTREMITIES - no edema, no calf tenderness. Laboratory Results - last 24 hr 06/11/19 06/11/19 06/11/19 10:40 22:40 22:40 WBC RBC Hgb Hct MCV MCH MCHC RDW Plt Count MPV PT with INR INR PTT (Actin FS) 32.9 Sodium 136 Potassium 3.7 Chloride 99 Carbon Dioxide 28 Anion Gap 8 BUN 11.3 Creatinine 0.6 Est GFR (CKD-EPI)AfAm 142.76 Est GFR (CKD-EPI)NonAf 123.17 Random Glucose 111 H Lactic Acid Calcium 8.8 Total Bilirubin 0.9 AST 19 ALT 26 Alkaline Phosphatase 73 Total Protein 6.9 Albumin 3.6 Urine Color Urine Appearance Urine pH Ur Specific [place] Urine Protein Urine Glucose (UA) Urine Ketones Urine Blood Urine Nitrite Urine Bilirubin Urine Urobilinogen Ur Leukocyte Esterase Urine WBC (Auto) Urine RBC (Auto) Urine Casts (Auto) U Epithel Cells (Auto) Urine Bacteria (Auto) Urine HCG, Qual Opiates Screen Methadone Screen Barbiturate Screen Phencyclidine Screen Ur Amphetamines Screen MDMA (Ecstasy) Screen Benzodiazepines Screen Cocaine Screen U Marijuana (THC) Screen Blood Type O POSITIVE Antibody Screen 06/11/19 06/11/19 06/11/19 22:40 22:40 22:40 WBC 16.1 H RBC 3.99 Hgb 12.6 Hct 37.7 MCV 94.6 MCH 31.6 MCHC 33.4 RDW 13.5 Plt Count 205 MPV 9.8 PT with INR 14.00 H INR 1.18 H PTT (Actin FS) Sodium Potassium Chloride Carbon Dioxide Anion Gap BUN Creatinine Est GFR (CKD-EPI)AfAm Est GFR (CKD-EPI)NonAf Random Glucose Lactic Acid 1.1 Calcium Total Bilirubin AST ALT Alkaline Phosphatase Total Protein Albumin Urine Color Urine Appearance Urine pH Ur Specific [place] Urine Protein Urine Glucose (UA) Urine Ketones Urine Blood Urine Nitrite Urine Bilirubin Urine Urobilinogen Ur Leukocyte Esterase Urine WBC (Auto) Urine RBC (Auto) Urine Casts (Auto) U Epithel Cells (Auto) Urine Bacteria (Auto) Urine HCG, Qual Opiates Screen Methadone Screen Barbiturate Screen Phencyclidine Screen Ur Amphetamines Screen MDMA (Ecstasy) Screen Benzodiazepines Screen Cocaine Screen U Marijuana (THC) Screen Blood Type Antibody Screen 06/11/19 06/12/19 06/12/19 22:40 00:00 00:00 WBC RBC Hgb Hct MCV MCH MCHC RDW Plt Count MPV PT with INR INR PTT (Actin FS) Sodium Potassium Chloride Carbon Dioxide Anion Gap BUN Creatinine Est GFR (CKD-EPI)AfAm Est GFR (CKD-EPI)NonAf Random Glucose Lactic Acid Calcium Total Bilirubin AST ALT Alkaline Phosphatase Total Protein Albumin Urine Color Dk yellow Urine Appearance Cloudy Urine pH 5.5 Ur Specific [place] 1.028 Urine Protein Trace Urine Glucose (UA) Negative Urine Ketones Trace H Urine Blood Negative Urine Nitrite Positive H Urine Bilirubin 1+ H Urine Urobilinogen 1.0 Ur Leukocyte Esterase 1+ H Urine WBC (Auto) 10 Urine RBC (Auto) 2 Urine Casts (Auto) 10 U Epithel Cells (Auto) 10.9 Urine Bacteria (Auto) 445.3 Urine HCG, Qual Negative Opiates Screen Methadone Screen Barbiturate Screen Phencyclidine Screen Ur Amphetamines Screen MDMA (Ecstasy) Screen Benzodiazepines Screen Cocaine Screen U Marijuana (THC) Screen Blood Type O POSITIVE Antibody Screen Negative 06/12/19 13:37 WBC RBC Hgb Hct MCV MCH MCHC RDW Plt Count MPV PT with INR INR PTT (Actin FS) Sodium Potassium Chloride Carbon Dioxide Anion Gap BUN Creatinine Est GFR (CKD-EPI)AfAm Est GFR (CKD-EPI)NonAf Random Glucose Lactic Acid Calcium Total Bilirubin AST ALT Alkaline Phosphatase Total Protein Albumin Urine Color Urine Appearance Urine pH Ur Specific [place] Urine Protein Urine Glucose (UA) Urine Ketones Urine Blood Urine Nitrite Urine Bilirubin Urine Urobilinogen Ur Leukocyte Esterase Urine WBC (Auto) Urine RBC (Auto) Urine Casts (Auto) U Epithel Cells (Auto) Urine Bacteria (Auto) Urine HCG, Qual Opiates Screen Positive A* Methadone Screen Negative Barbiturate Screen Negative Phencyclidine Screen Negative Ur Amphetamines Screen Negative MDMA (Ecstasy) Screen Negative Benzodiazepines Screen Negative Cocaine Screen Negative U Marijuana (THC) Screen Negative Blood Type Antibody Screen Current Medications Generic Name Dose Route Start Last Admin Trade Name Freq PRN Reason Stop Dose Admin Acetaminophen 1,000 mg 06/12/19 07:22 Ofirmev Injection - IVPB Q6H PRN PAIN LEVEL 1 - 3 Clonidine 0.1 mg 06/12/19 15:27 Catapres - PO 06/14/19 23:59 Q4H PRN Withdrawal Symptoms Enoxaparin Sodium 40 mg 06/12/19 10:00 06/12/19 09:40 Lovenox - SQ Not Given DAILY GEORGE Sodium Chloride 1,000 mls @ 75 mls/hr 06/12/19 07:00 06/12/19 08:48 Normal Saline - IV 75 mls/hr ASDIR GEORGE Administration Piperacillin Sod/Tazobactam 50 mls @ 100 mls/hr 06/12/19 12:15 06/12/19 12:33 Sod 3.375 gm/ Dextrose IVPB 100 mls/hr Q8H-IV GEORGE Administration Protocol Vancomycin HCl 1,250 mg/ 250 mls @ 166.667 mls/hr 06/13/19 12:30 Dextrose IVPB Q24H GEORGE Protocol Methadone HCl 20 mg/ Methadone 25 mg 06/13/19 10:00 HCl 5 mg PO 06/13/19 10:01 ONCE ONE Methadone HCl 10 mg/ Methadone 15 mg 06/15/19 10:00 HCl 5 mg PO 06/15/19 10:01 ONCE ONE Methadone HCl 30 mg 06/12/19 18:00 Dolophine - PO 06/12/19 18:01 ONCE ONE Methadone HCl 5 mg 06/17/19 06:00 Dolophine - PO 06/17/19 06:01 ONCE@0600 ONE Methadone HCl 10 mg 06/16/19 10:00 Dolophine - PO 06/16/19 10:01 ONCE ONE Methadone HCl 20 mg 06/14/19 10:00 Dolophine - PO 06/14/19 10:01 ONCE ONE Nicotine 14 mg 06/12/19 10:00 06/12/19 09:40 Nicoderm Patch - TD Not Given DAILY GEORGE Polyethylene Glycol 17 gm 06/12/19 10:00 06/12/19 09:40 Miralax (For Daily Use) - PO Not Given BID GEORGE Senna 2 tab 06/12/19 02:22 Senna - PO HS PRN CONSTIPATION Home Medications Medication Instructions Recorded NK [No Known Home Medication] 06/12/19 ASSESSMENT/PLAN: 28 year old male with history of IV Heroin Use, presents with abdominal wall erythema/tenderness with pustular exudate, progressive over past week after suspected spider bite. 1. Sepsis secondary to LLQ Abdominal Wall Cellulitis with Abscess Fever resolved, Hemodynamicaly Stable. Leukocytosis + Continue IV Zosyn/Vancomycin Blood Cx pending. Surgery consulted for I and D. 2. Heroin Use Addiction medicine Consulted - for detox with Methadone taper. 3. Tobacco Use - counselled and prescribed nicotine patch. 4. Possible UTI. Dysuria, Positive UA. Urine Cx pending. On Zosyn. DVT Px - Lovenox SQ.
[2019-06-12] MEDS ORDERED: METHADONE HCL 10 MG TABLET PO ONE (18:00)
--- NOTE | 2019-06-12 18:16 | PN ---
Physical Exam: SUBJECTIVE: Patient seen and examined. Endorsing severe Left lower abdominal wall pain with touch. OBJECTIVE: Vital Signs Period Temp Pulse Resp BP Sys/Martinez Pulse Ox Last 24 Hr 98.3 F-101.1 F 61-120 18-18 93-142/48-97 96-100 GENERAL: The patient is awake, alert, no acute distress. Cooperative HEAD: Normal with no signs of trauma. EYES: extraocular movements intact, sclera anicteric, conjunctiva clear. ENT: moist mucous membranes. NECK: Trachea midline, full range of motion, supple. LUNGS: Breath sounds equal, clear to auscultation bilaterally, no wheezes, no crackles, no accessory muscle use. HEART: Regular rate and rhythm, S1, S2 without murmur, rub or gallop. ABDOMEN: soft, Left lower abdomen with erythematous patch extending from midline to Left hip with redness extending beyond ink-demarcated border; exquisitely TTP NEURO: normal speech Laboratory Results - last 24 hr 06/11/19 06/11/19 06/11/19 10:40 22:40 22:40 WBC RBC Hgb Hct MCV MCH MCHC RDW Plt Count MPV PT with INR INR PTT (Actin FS) 32.9 Sodium 136 Potassium 3.7 Chloride 99 Carbon Dioxide 28 Anion Gap 8 BUN 11.3 Creatinine 0.6 Est GFR (CKD-EPI)AfAm 142.76 Est GFR (CKD-EPI)NonAf 123.17 Random Glucose 111 H Lactic Acid Calcium 8.8 Total Bilirubin 0.9 AST 19 ALT 26 Alkaline Phosphatase 73 Total Protein 6.9 Albumin 3.6 Urine Color Urine Appearance Urine pH Ur Specific [place] Urine Protein Urine Glucose (UA) Urine Ketones Urine Blood Urine Nitrite Urine Bilirubin Urine Urobilinogen Ur Leukocyte Esterase Urine WBC (Auto) Urine RBC (Auto) Urine Casts (Auto) U Epithel Cells (Auto) Urine Bacteria (Auto) Urine HCG, Qual Opiates Screen Methadone Screen Barbiturate Screen Phencyclidine Screen Ur Amphetamines Screen MDMA (Ecstasy) Screen Benzodiazepines Screen Cocaine Screen U Marijuana (THC) Screen Blood Type O POSITIVE Antibody Screen 06/11/19 06/11/19 06/11/19 22:40 22:40 22:40 WBC 16.1 H RBC 3.99 Hgb 12.6 Hct 37.7 MCV 94.6 MCH 31.6 MCHC 33.4 RDW 13.5 Plt Count 205 MPV 9.8 PT with INR 14.00 H INR 1.18 H PTT (Actin FS) Sodium Potassium Chloride Carbon Dioxide Anion Gap BUN Creatinine Est GFR (CKD-EPI)AfAm Est GFR (CKD-EPI)NonAf Random Glucose Lactic Acid 1.1 Calcium Total Bilirubin AST ALT Alkaline Phosphatase Total Protein Albumin Urine Color Urine Appearance Urine pH Ur Specific [place] Urine Protein Urine Glucose (UA) Urine Ketones Urine Blood Urine Nitrite Urine Bilirubin Urine Urobilinogen Ur Leukocyte Esterase Urine WBC (Auto) Urine RBC (Auto) Urine Casts (Auto) U Epithel Cells (Auto) Urine Bacteria (Auto) Urine HCG, Qual Opiates Screen Methadone Screen Barbiturate Screen Phencyclidine Screen Ur Amphetamines Screen MDMA (Ecstasy) Screen Benzodiazepines Screen Cocaine Screen U Marijuana (THC) Screen Blood Type Antibody Screen 06/11/19 06/12/19 06/12/19 22:40 00:00 00:00 WBC RBC Hgb Hct MCV MCH MCHC RDW Plt Count MPV PT with INR INR PTT (Actin FS) Sodium Potassium Chloride Carbon Dioxide Anion Gap BUN Creatinine Est GFR (CKD-EPI)AfAm Est GFR (CKD-EPI)NonAf Random Glucose Lactic Acid Calcium Total Bilirubin AST ALT Alkaline Phosphatase Total Protein Albumin Urine Color Dk yellow Urine Appearance Cloudy Urine pH 5.5 Ur Specific [place] 1.028 Urine Protein Trace Urine Glucose (UA) Negative Urine Ketones Trace H Urine Blood Negative Urine Nitrite Positive H Urine Bilirubin 1+ H Urine Urobilinogen 1.0 Ur Leukocyte Esterase 1+ H Urine WBC (Auto) 10 Urine RBC (Auto) 2 Urine Casts (Auto) 10 U Epithel Cells (Auto) 10.9 Urine Bacteria (Auto) 445.3 Urine HCG, Qual Negative Opiates Screen Methadone Screen Barbiturate Screen Phencyclidine Screen Ur Amphetamines Screen MDMA (Ecstasy) Screen Benzodiazepines Screen Cocaine Screen U Marijuana (THC) Screen Blood Type O POSITIVE Antibody Screen Negative 06/12/19 13:37 WBC RBC Hgb Hct MCV MCH MCHC RDW Plt Count MPV PT with INR INR PTT (Actin FS) Sodium Potassium Chloride Carbon Dioxide Anion Gap BUN Creatinine Est GFR (CKD-EPI)AfAm Est GFR (CKD-EPI)NonAf Random Glucose Lactic Acid Calcium Total Bilirubin AST ALT Alkaline Phosphatase Total Protein Albumin Urine Color Urine Appearance Urine pH Ur Specific [place] Urine Protein Urine Glucose (UA) Urine Ketones Urine Blood Urine Nitrite Urine Bilirubin Urine Urobilinogen Ur Leukocyte Esterase Urine WBC (Auto) Urine RBC (Auto) Urine Casts (Auto) U Epithel Cells (Auto) Urine Bacteria (Auto) Urine HCG, Qual Opiates Screen Positive A* Methadone Screen Negative Barbiturate Screen Negative Phencyclidine Screen Negative Ur Amphetamines Screen Negative MDMA (Ecstasy) Screen Negative Benzodiazepines Screen Negative Cocaine Screen Negative U Marijuana (THC) Screen Negative Blood Type Antibody Screen Active Medications Generic Name Dose Route Start Last Admin Trade Name Freq PRN Reason Stop Dose Admin Acetaminophen 1,000 mg 06/12/19 07:22 Ofirmev Injection - IVPB Q6H PRN PAIN LEVEL 1 - 3 Clonidine 0.1 mg 06/12/19 15:27 Catapres - PO 06/14/19 23:59 Q4H PRN Withdrawal Symptoms Enoxaparin Sodium 40 mg 06/12/19 10:00 06/12/19 09:40 Lovenox - SQ Not Given DAILY GEORGE Sodium Chloride 1,000 mls @ 75 mls/hr 06/12/19 07:00 06/12/19 08:48 Normal Saline - IV 75 mls/hr ASDIR GEORGE Administration Piperacillin Sod/Tazobactam 50 mls @ 100 mls/hr 06/12/19 12:15 06/12/19 17:00 Sod 3.375 gm/ Dextrose IVPB 100 mls/hr Q8H-IV GEORGE Administration Protocol Vancomycin HCl 1,250 mg/ 250 mls @ 166.667 mls/hr 06/13/19 12:30 Dextrose IVPB Q24H GEORGE Protocol Methadone HCl 20 mg/ Methadone 25 mg 06/13/19 10:00 HCl 5 mg PO 06/13/19 10:01 ONCE ONE Methadone HCl 10 mg/ Methadone 15 mg 06/15/19 10:00 HCl 5 mg PO 06/15/19 10:01 ONCE ONE Methadone HCl 5 mg 06/17/19 06:00 Dolophine - PO 06/17/19 06:01 ONCE@0600 ONE Methadone HCl 10 mg 06/16/19 10:00 Dolophine - PO 06/16/19 10:01 ONCE ONE Methadone HCl 20 mg 06/14/19 10:00 Dolophine - PO 06/14/19 10:01 ONCE ONE Nicotine 14 mg 06/12/19 10:00 06/12/19 09:40 Nicoderm Patch - TD Not Given DAILY GEORGE Polyethylene Glycol 17 gm 06/12/19 10:00 06/12/19 09:40 Miralax (For Daily Use) - PO Not Given BID GEORGE Senna 2 tab 06/12/19 02:22 Senna - PO HS PRN CONSTIPATION Vital Signs Temp 98.3 F 06/12/19 18:00 Pulse 87 06/12/19 18:00 Resp 18 06/12/19 18:00 BP 106/72 06/12/19 18:00 Pulse Ox 98 06/12/19 09:00 Intake & Output 06/11/19 06/12/19 06/12/19 23:59 11:59 23:59 Weight 88.451 kg 88.813 kg Other: Voiding Method Toilet Toilet Bowel Movement No No Height 5 ft 5 in 5 ft 5 in Body Mass Index (BMI) 32.4 32.5 Weight Measurement Method Standing Scale Weight Measurement Method Est/Stated by Patient ASSESSMENT/PLAN: #Abdominal wall abscess with cellulitis -Vanc, Ceftriaxone -F/u blood & Urine cx's; f.u with echo if blood cx's are + -F/u CT abd/ pelvis -- cancelled as per surgery -Surgery consult --suggested I&D -- patient deferred decision making -Dr. Blackmon --cw vanc, zosyn --fu bcx --rec surg consult #Heroin abuse -Last use: day of admision -Given buprenorphine in the past but has not taken it -Fall, aspiration, seizure precautions -Miralax, senna for constipation -Addiction medicine consulted: --methadone taper ordered #Nicotine dependence -nicotine patch -Counselled on health risks associated w/ cigarette smoking including but not limited to lung disease, cardiovascular disease, . #Asymptomatic UTI -No dysuria/ hematuria/ polyuria -Pt on abx for abd abscess & cellulitis -Monitor for urinary symptoms #FEN -No standing fluids -Monitor electrolytes -NPO #DVT PPX -LVX 40mg SQ daily Visit type - Emergency Visit Emergency Visit: No - New Patient This patient is new to me today: No - Critical Care Critical Care patient: No ATTENDING PHYSICIAN STATEMENT I saw and evaluated the patient. I reviewed the resident's note and discussed the case with the resident. I agree with the resident's findings and plan as documented. SUBJECTIVE: OBJECTIVE: ASSESSMENT AND PLAN:
[2019-06-12] MEDS ORDERED: PROCHLORPERAZINE MALEATE 5 MG TABLET PO PRN (21:21)
[2019-06-12] MEDS: ACETAMINOPHEN 1000 MG/100 ML VIAL (NON FORMULARY) IVPB PRN (21:55)
[2019-06-13] MEDS: SODIUM CHLORIDE 1,000 ML IV SCH (01:00)
[2019-06-13] MEDS ORDERED: PIPERACILLIN/TAZOBACTAM 3.375 GM VIAL IVPB ONE ×3 (02:15→16:47)
[2019-06-13] MEDS ORDERED: DEXTROSE 5%-WATER - 50 ML IVPB ONE ×3 (02:15→16:47)
[2019-06-13] MEDS: PIPERACILLIN/TAZOB 3.375 GM 3.375 GM in DEXTROSE 5%-WATER - 50 ML IVPB SCH ×3 (02:45→17:43)
[2019-06-13] MEDS ORDERED: METHADONE HCL 10 MG TABLET ONE (09:30)
[2019-06-13] MEDS ORDERED: METHADONE HCL 5 MG TABLET ONE (09:30)
[2019-06-13] MEDS: ENOXAPARIN NA (PORCINE) 40 MG/0.4 ML DISP.SYRIN SQ SCH (09:41)
[2019-06-13] MEDS: NICOTINE 14 MG/24 HOURS TOPICAL PATCH TD SCH (09:42)
[2019-06-13] MEDS: POLYETHYLENE GLYCOL 3350 119 GM BTL PO SCH ×2 (09:42→21:38)
[2019-06-13] MEDS ORDERED: METHADONE 20 MG, METHADONE 5 MG PO ONE (10:00)
--- NOTE | 2019-06-13 11:01 | PN ---
Progress Note (short form) - Note Progress Note: Attending Surgeon Patient states she is now amenable to I and D; she has had a full breakfast. Last Vital Signs Temp Pulse Resp BP Pulse Ox 97.6 F 69 18 112/72 98 06/13/19 07:56 06/13/19 07:56 06/13/19 07:56 06/13/19 07:56 06/12/19 21:00 abdo-left abdo skin indurated and erythematous and ttp IMP: ABSSSI left abdomen PLAN: Patient now amenable to I and D; understands the wound will be left open to heal by secondary intention and a scar will be present.; for OR 06/14/19. Gino Bar MD FACS
--- NOTE | 2019-06-13 12:04 | PN ---
Teaching Attending Note Name of Resident: Nathaniel De Jesus ATTENDING PHYSICIAN STATEMENT I saw and evaluated the patient. I reviewed the resident's note and discussed the case with the resident. I agree with the resident's findings and plan as documented. SUBJECTIVE: Complains of ongoing LLQ abdominal wall pain/swelling/tenderness. No fever/chills/nausea/vomiting. OBJECTIVE: Fever resolved, Hemodynamically Stable. Last Vital Signs Temp Pulse Resp BP Pulse Ox 98.4 F 82 20 105/53 L 98 06/13/19 09:00 06/13/19 09:00 06/13/19 09:00 06/13/19 09:00 06/12/19 21:00 HEART - S1, S2, RRR LUNGS - clear to auscultation ABDOMEN - LLQ erythematous area with central region of fluctuance and pustular discharge, likely abscess EXTREMITIES - no edema, no calf tenderness. Laboratory Results - last 24 hr 06/11/19 06/12/19 10:40 13:37 Opiates Screen Positive A* Methadone Screen Negative Barbiturate Screen Negative Phencyclidine Screen Negative Ur Amphetamines Screen Negative MDMA (Ecstasy) Screen Negative Benzodiazepines Screen Negative Cocaine Screen Negative U Marijuana (THC) Screen Negative Blood Type O POSITIVE Current Medications Generic Name Dose Route Start Last Admin Trade Name Freq PRN Reason Stop Dose Admin Acetaminophen 1,000 mg 06/12/19 07:22 06/12/19 21:55 Ofirmev Injection - IVPB 1,000 mg Q6H PRN Administration PAIN LEVEL 1 - 3 Clonidine 0.1 mg 06/12/19 15:27 Catapres - PO 06/14/19 23:59 Q4H PRN Withdrawal Symptoms Enoxaparin Sodium 40 mg 06/12/19 10:00 06/13/19 09:41 Lovenox - SQ Not Given DAILY GEORGE Sodium Chloride 1,000 mls @ 75 mls/hr 06/12/19 07:00 06/13/19 01:00 Normal Saline - IV 75 mls/hr ASDIR GEORGE Administration Piperacillin Sod/Tazobactam 50 mls @ 100 mls/hr 06/12/19 12:15 06/13/19 09:44 Sod 3.375 gm/ Dextrose IVPB 100 mls/hr Q8H-IV GEORGE Administration Protocol Vancomycin HCl 1,250 mg/ 250 mls @ 166.667 mls/hr 06/13/19 12:30 Dextrose IVPB Q24H [facility] Protocol Methadone HCl 10 mg/ Methadone 15 mg 06/15/19 10:00 HCl 5 mg PO 06/15/19 10:01 ONCE ONE Methadone HCl 5 mg 06/17/19 06:00 Dolophine - PO 06/17/19 06:01 ONCE@0600 ONE Methadone HCl 10 mg 06/16/19 10:00 Dolophine - PO 06/16/19 10:01 ONCE ONE Methadone HCl 20 mg 06/14/19 10:00 Dolophine - PO 06/14/19 10:01 ONCE ONE Nicotine 14 mg 06/12/19 10:00 06/13/19 09:42 Nicoderm Patch - TD Not Given DAILY [facility] Polyethylene Glycol 17 gm 06/12/19 10:00 06/13/19 09:42 Miralax (For Daily Use) - PO Not Given BID [facility] Prochlorperazine Maleate 5 mg 06/12/19 21:21 06/12/19 21:52 Compazine - PO 5 mg Q4H PRN Administration NAUSEA AND/OR VOMITING Senna 2 tab 06/12/19 02:22 Senna - PO HS PRN CONSTIPATION Home Medications Medication Instructions Recorded NK [No Known Home Medication] 06/12/19 ASSESSMENT/PLAN: 28 year old male with history of IV Heroin Use, presents with abdominal wall erythema/tenderness with pustular exudate, progressive over past week after suspected spider bite. 1. Sepsis secondary to LLQ Abdominal Wall Cellulitis with Abscess Fever resolved, Hemodynamicaly Stable. Leukocytosis + Continue IV Zosyn/Vancomycin Blood Cx negative Abdominal Wound Cx pending Surgery consulted for I and D - scheduled 06/14 2. Heroin Use Addiction medicine Consulted - for detox with Methadone taper. 3. Tobacco Use - counselled and prescribed nicotine patch. 4. UTI. Dysuria, Urine Cx positive for LFNB. On Zosyn. ID and Sensitivity pending. DVT Px - Lovenox SQ.
[2019-06-13] MEDS ORDERED: PT OWN MED DRAWER 7, Y5N ONE (12:22)
[2019-06-13] MEDS ORDERED: VANCOMYCIN HCL 1,250 MG in DEXTROSE 5%-WATER - 250 ML IVPB SCH (12:30)
--- NOTE | 2019-06-13 14:32 | PN ---
Physical Exam: SUBJECTIVE: Patient seen and examined. Endorses improvement in abd wall pain wound had spontaneous drainage with thick purulent fluid. Endorses chills. Denies fever. Expresses concern that a bedside I&D would be too painful as she has had it in the past for previous UE abscesses. OBJECTIVE: Vital Signs Period Temp Pulse Resp BP Sys/Martinez Pulse Ox Last 24 Hr 97.6 F-99.3 F 54-95 18-20 105-112/53-74 98 GENERAL: The patient is awake, alert, no acute distress. Cooperative HEAD: Normal with no signs of trauma. EYES: extraocular movements intact, sclera anicteric, conjunctiva clear. ENT: moist mucous membranes. NECK: Trachea midline, full range of motion, supple. LUNGS: Breath sounds equal, clear to auscultation bilaterally, no wheezes, no crackles, no accessory muscle use. HEART: Regular rate and rhythm, S1, S2 without murmur, rub or gallop. ABDOMEN: soft, Left lower abdomen with erythematous patch extending from Right of midline to Left hip with redness extending beyond ink-demarcated border; exquisitely TTP at area of flocculence NEURO: normal speech Laboratory Results - last 24 hr 06/12/19 13:37 Opiates Screen Positive A* Methadone Screen Negative Barbiturate Screen Negative Phencyclidine Screen Negative Ur Amphetamines Screen Negative MDMA (Ecstasy) Screen Negative Benzodiazepines Screen Negative Cocaine Screen Negative U Marijuana (THC) Screen Negative Active Medications Generic Name Dose Route Start Last Admin Trade Name Freq PRN Reason Stop Dose Admin Acetaminophen 1,000 mg 06/12/19 07:22 06/12/19 21:55 Ofirmev Injection - IVPB 1,000 mg Q6H PRN Administration PAIN LEVEL 1 - 3 Clonidine 0.1 mg 06/12/19 15:27 Catapres - PO 06/14/19 23:59 Q4H PRN Withdrawal Symptoms Enoxaparin Sodium 40 mg 06/12/19 10:00 06/13/19 09:41 Lovenox - SQ Not Given DAILY GEORGE Sodium Chloride 1,000 mls @ 75 mls/hr 06/12/19 07:00 06/13/19 01:00 Normal Saline - IV 75 mls/hr ASDIR GEORGE Administration Piperacillin Sod/Tazobactam 50 mls @ 100 mls/hr 06/12/19 12:15 06/13/19 09:44 Sod 3.375 gm/ Dextrose IVPB 100 mls/hr Q8H-IV GEORGE Administration Protocol Vancomycin HCl 1,250 mg/ 250 mls @ 166.667 mls/hr 06/13/19 12:30 06/13/19 12: 25 Dextrose IVPB 166.667 mls/hr Q24H [facility] Administration Protocol Methadone HCl 10 mg/ Methadone 15 mg 06/15/19 10:00 HCl 5 mg PO 06/15/19 10:01 ONCE ONE Methadone HCl 5 mg 06/17/19 06:00 Dolophine - PO 06/17/19 06:01 ONCE@0600 ONE Methadone HCl 10 mg 06/16/19 10:00 Dolophine - PO 06/16/19 10:01 ONCE ONE Methadone HCl 20 mg 06/14/19 10:00 Dolophine - PO 06/14/19 10:01 ONCE ONE Nicotine 14 mg 06/12/19 10:00 06/13/19 09:42 Nicoderm Patch - TD Not Given DAILY GEORGE Polyethylene Glycol 17 gm 06/12/19 10:00 06/13/19 09:42 Miralax (For Daily Use) - PO Not Given BID GEORGE Prochlorperazine Maleate 5 mg 06/12/19 21:21 06/12/19 21:52 Compazine - PO 5 mg Q4H PRN Administration NAUSEA AND/OR VOMITING Senna 2 tab 06/12/19 02:22 Senna - PO HS PRN CONSTIPATION Vital Signs Temp 98.4 F 06/13/19 09:00 Pulse 82 06/13/19 09:00 Resp 20 06/13/19 09:00 BP 105/53 L 06/13/19 09:00 Pulse Ox 98 06/12/19 21:00 Intake & Output 06/12/19 06/13/19 06/13/19 23:59 11:59 23:59 Intake Total 975 Balance 975 Intake: IV 825 Normal Saline - 1,000 ml 825 @ 75 mls/hr IV ASDIR GEORGE Rx#:[id number] IVPB 150 Other: Voiding Method Toilet Bowel Movement No No ASSESSMENT/PLAN: #Abdominal wall abscess with cellulitis -Vanc, Ceftriaxone >blood cx(06/11/19) -- NGTD >urine cx(06/12/19) -- lactose-fermenting gram neg rods -being covered by zosyn -F/u CT abd/ pelvis -- cancelled as per surgery -Surgery consult --suggested I&D, possibly 06/14/19 for OR -Dr. Blackmon --cw vanc, zosyn #Heroin abuse -Last use: day of admision -Given buprenorphine in the past but has not taken it -Fall, aspiration, seizure precautions -Miralax, senna for constipation -Addiction medicine consulted: --methadone taper ordered #Nicotine dependence -nicotine patch -Counselled on health risks associated w/ cigarette smoking including but not limited to lung disease, cardiovascular disease, . #Asymptomatic UTI -No dysuria/ hematuria/ polyuria -Pt on abx for abd abscess & cellulitis #FEN -No standing fluids -Monitor electrolytes -NPO@MN #DVT PPX -LVX 40mg SQ daily - hold on 06/14/19 for OR I&D Visit type - Emergency Visit Emergency Visit: No - New Patient This patient is new to me today: No - Critical Care Critical Care patient: No ATTENDING PHYSICIAN STATEMENT I saw and evaluated the patient. I reviewed the resident's note and discussed the case with the resident. I agree with the resident's findings and plan as documented. SUBJECTIVE: OBJECTIVE: ASSESSMENT AND PLAN:
[2019-06-13] MEDS: ACETAMINOPHEN 1000 MG/100 ML VIAL (NON FORMULARY) IVPB PRN (15:56)
--- NOTE | 2019-06-13 16:51 | PN ---
Progress Note, Physician History of Present Illness: Pt is comfortable. Scheduled for I+D tomorrow. She is afebrile, has pain in abdomen only with palpation. Urine culture results noted. Denies urinary f/u/d. - Current Medication List Current Medications: Active Medications Acetaminophen (Ofirmev Injection -) 1,000 mg IVPB Q6H PRN PRN Reason: PAIN LEVEL 1 - 3 Last Admin: 06/13/19 15:56 Dose: 1,000 mg Clonidine (Catapres -) 0.1 mg PO Q4H PRN PRN Reason: Withdrawal Symptoms Stop: 06/14/19 23:59 Enoxaparin Sodium (Lovenox -) 40 mg SQ DAILY GEORGE Last Admin: 06/13/19 09:41 Dose: Not Given Sodium Chloride (Normal Saline -) 1,000 mls @ 75 mls/hr IV ASDIR GEORGE Last Admin: 06/13/19 01:00 Dose: 75 mls/hr Piperacillin Sod/Tazobactam (Sod 3.375 gm/ Dextrose) 50 mls @ 100 mls/hr IVPB Q8H-IV GEORGE; Protocol Last Admin: 06/13/19 09:44 Dose: 100 mls/hr Vancomycin HCl 1,250 mg/ (Dextrose) 250 mls @ 166.667 mls/hr IVPB Q24H [facility]ORGE; Protocol Last Admin: 06/13/19 12:25 Dose: 166.667 mls/hr Methadone HCl 10 mg/ Methadone (HCl 5 mg) 15 mg PO ONCE ONE Stop: 06/15/19 10:01 Methadone HCl (Dolophine -) 5 mg PO ONCE@0600 ONE Stop: 06/17/19 06:01 Methadone HCl (Dolophine -) 10 mg PO ONCE ONE Stop: 06/16/19 10:01 Methadone HCl (Dolophine -) 20 mg PO ONCE ONE Stop: 06/14/19 10:01 Nicotine (Nicoderm Patch -) 14 mg TD DAILY [facility] Last Admin: 06/13/19 09:42 Dose: Not Given Polyethylene Glycol (Miralax (For Daily Use) -) 17 gm PO BID GEORGE Last Admin: 06/13/19 09:42 Dose: Not Given Prochlorperazine Maleate (Compazine -) 5 mg PO Q4H PRN PRN Reason: NAUSEA AND/OR VOMITING Last Admin: 06/12/19 21:52 Dose: 5 mg Senna (Senna -) 2 tab PO HS PRN PRN Reason: CONSTIPATION - Objective Vital Signs: Vital Signs Temperature 98.7 F 06/13/19 15:00 Pulse Rate 59 L 06/13/19 15:00 Respiratory Rate 20 06/13/19 15:00 Blood Pressure 118/58 L 06/13/19 15:00 O2 Sat by Pulse Oximetry (%) 98 06/13/19 09:00 Constitutional: Yes: No Distress, Calm Cardiovascular: Yes: Regular Rate and Rhythm Respiratory: Yes: Regular Gastrointestinal: Yes: Normal Bowel Sounds, Soft Genitourinary: Yes: WNL Extremities: Yes: WNL Integumentary: Yes: WNL Wound/Incision: Yes: Other (LLQ abdominal wall erythema/warmth/tenderness with draining wound) Neurological: Yes: Alert, Oriented Labs: CBC, BMP 06/11/19 22:40 06/11/19 22:40 INR, PTT INR 1.18 (0.83-1.09) H 06/11/19 22:40 Microbiology 06/12/19 00:00 Urine - Urine Clean Catch Urine Culture - Preliminary Lactose Fermenting Neg Bacilli 06/11/19 22:40 Blood - Peripheral Venous Blood Culture - Preliminary NO GROWTH OBTAINED AFTER 24 HOURS, INCUBATION TO CONTINUE FOR 4 DAYS. 06/11/19 00:10 Blood - Peripheral Venous Blood Culture - Preliminary NO GROWTH OBTAINED AFTER 24 HOURS, INCUBATION TO CONTINUE FOR 4 DAYS. Problem List - Problems (1) Abscess Code(s): L02.91 - CUTANEOUS ABSCESS, UNSPECIFIED (2) Cellulitis of left abdominal wall Code(s): L03.311 - CELLULITIS OF ABDOMINAL WALL (3) Sepsis Code(s): A41.9 - SEPSIS, UNSPECIFIED ORGANISM Qualifiers: Sepsis type: sepsis due to unspecified organism Sepsis acute organ dysfunction status: without acute organ dysfunction Qualified Code(s): A41.9 - Sepsis, unspecified organism Assessment/Plan Abdominal wall cellulitis/abscess Hx of IVDU Leukocytosis -- continue IV antibiotics, follow up wound culture results -- blood cultures no growth in 24h -- repeat cbc, monitor bmp, Vancomycin trough prior to 4th dose -- I+D planned for tomorrow
[2019-06-14] MEDS: SODIUM CHLORIDE 1,000 ML IV SCH ×3 (02:04→12:23)
[2019-06-14] MEDS ORDERED: PIPERACILLIN/TAZOBACTAM 3.375 GM VIAL IVPB ONE ×2 (02:06→08:37)
[2019-06-14] MEDS ORDERED: DEXTROSE 5%-WATER - 50 ML IVPB ONE ×2 (02:07→08:37)
[2019-06-14] MEDS: PIPERACILLIN/TAZOB 3.375 GM 3.375 GM in DEXTROSE 5%-WATER - 50 ML IVPB SCH ×2 (02:19→09:29)
[2019-06-14] MEDS: ACETAMINOPHEN 1000 MG/100 ML VIAL (NON FORMULARY) IVPB PRN (08:42)
[2019-06-14] MEDS: ENOXAPARIN NA (PORCINE) 40 MG/0.4 ML DISP.SYRIN SQ SCH (09:28)
[2019-06-14] MEDS: NICOTINE 14 MG/24 HOURS TOPICAL PATCH TD SCH (09:28)
[2019-06-14] MEDS: POLYETHYLENE GLYCOL 3350 119 GM BTL PO SCH (09:28)
[2019-06-14] MEDS ORDERED: MIDAZOLAM HCL 2 MG/2 ML SINGLE DOSE VIAL ONE ×2 (09:50)
[2019-06-14] MEDS ORDERED: fentaNYL CITRATE 250 MCG/5 ML VIAL ONE ×2 (09:50→10:18)
[2019-06-14] MEDS ORDERED: PROPOFOL 20 ML ONE ×2 (09:50→10:13)
[2019-06-14] MEDS ORDERED: DEXAMETHASONE SOD PHOSPHATE 4 MG/1 ML VIAL ONE (09:50)
[2019-06-14] MEDS ORDERED: SUCCINYLCHOLINE CHLORIDE 200 MG/10 ML SYRINGE ONE (09:50)
[2019-06-14] MEDS ORDERED: METHADONE HCL 10 MG TABLET PO ONE (10:00)
--- NOTE | 2019-06-14 10:34 | OP ---
Operative Note - Note: Operative Date: 06/14/19 Pre-Operative Diagnosis: abscess of the abdominal wall Operation: incision/drainage abscess abdominal wall Findings: xtensive ABSSSI of the abdominal wall Post-Operative Diagnosis: Same as Pre-op Surgeon: Gino Bar Anesthesiologist/DEFENSIVE LINE COACH: Brock Bishop Anesthesia: General Estimated Blood Loss (mls): 10 Drains & Tubes with Location: iodoform packing
[2019-06-14] MEDS ORDERED: ONDANSETRON 4 MG/2 ML VIAL IVPUSH PRN (10:48)
[2019-06-14] MEDS ORDERED: KETOROLAC TROMETHAMINE 30 MG/1 ML VIAL IVPUSH ONE (10:49)
[2019-06-14] MEDS ORDERED: ACETAMINOPHEN 1000 MG/100 ML VIAL (NON FORMULARY) IVPB ONE (10:49)
[2019-06-14] MEDS ORDERED: ACETAMINOPHEN INJECTION 100 ML IVPB ONE (10:50)
[2019-06-14] MEDS ORDERED: KETOROLAC TROMETHAMINE 30 MG/1 ML VIAL ONE (10:50)
[2019-06-14] MEDS ORDERED: cloNIDine HCL 0.1 MG TABLET PO PRN (10:58)
[2019-06-14] MEDS ORDERED: SENNOSIDES 8.6MG TABLET (FP) PO PRN (10:58)
[2019-06-14] MEDS ORDERED: PROCHLORPERAZINE MALEATE 5 MG TABLET PO PRN (10:58)
[2019-06-14] MEDS ORDERED: ACETAMINOPHEN 1000 MG/100 ML VIAL (NON FORMULARY) IVPB PRN (10:58)
[2019-06-14 12:02] VITALS: BP 113/68; PULSE 50; TEMP 98.5
[2019-06-14] MEDS ORDERED: PT OWN MED DRAWER 7, Y5N ONE (12:07)
[2019-06-14] MEDS ORDERED: VANCOMYCIN HCL 1,250 MG in DEXTROSE 5%-WATER - 250 ML IVPB SCH (12:30)
--- NOTE | 2019-06-14 17:14 | DS ---
Physical Exam: SUBJECTIVE: LLQ abdominal wall pain/swelling/tenderness improved s/p I and D by Surgery. No fever/chills/nausea/vomiting. Wants to leave AMA. OBJECTIVE: Fever resolved, Hemodynamically Stable. Last Vital Signs Temp Pulse Resp BP Pulse Ox 98.5 F 50 L 18 113/68 100 06/14/19 11:30 06/14/19 11:30 06/14/19 11:30 06/14/19 11:30 06/14/19 11:30 HEART - S1, S2, RRR LUNGS - clear to auscultation ABDOMEN - LLQ erythematous area with central region of fluctuance and pustular discharge, currently dressed s/p I and D. EXTREMITIES - no edema, no calf tenderness. Laboratory Tests 06/11/19 06/11/19 06/11/19 10:40 22:40 22:40 WBC RBC Hgb Hct MCV MCH MCHC RDW Plt Count MPV PT with INR INR PTT (Actin FS) 32.9 Sodium 136 Potassium 3.7 Chloride 99 Carbon Dioxide 28 Anion Gap 8 BUN 11.3 Creatinine 0.6 Est GFR (CKD-EPI)AfAm 142.76 Est GFR (CKD-EPI)NonAf 123.17 Random Glucose 111 H Lactic Acid Calcium 8.8 Phosphorus Magnesium Total Bilirubin 0.9 AST 19 ALT 26 Alkaline Phosphatase 73 Total Protein 6.9 Albumin 3.6 Urine Color Urine Appearance Urine pH Ur Specific [place] Urine Protein Urine Glucose (UA) Urine Ketones Urine Blood Urine Nitrite Urine Bilirubin Urine Urobilinogen Ur Leukocyte Esterase Urine WBC (Auto) Urine RBC (Auto) Urine Casts (Auto) U Epithel Cells (Auto) Urine Bacteria (Auto) Urine HCG, Qual Opiates Screen Methadone Screen Barbiturate Screen Phencyclidine Screen Ur Amphetamines Screen MDMA (Ecstasy) Screen Benzodiazepines Screen Cocaine Screen U Marijuana (THC) Screen Blood Type O POSITIVE Antibody Screen 06/11/19 06/11/19 06/11/19 22:40 22:40 22:40 WBC 16.1 H RBC 3.99 Hgb 12.6 Hct 37.7 MCV 94.6 MCH 31.6 MCHC 33.4 RDW 13.5 Plt Count 205 MPV 9.8 PT with INR 14.00 H INR 1.18 H PTT (Actin FS) Sodium Potassium Chloride Carbon Dioxide Anion Gap BUN Creatinine Est GFR (CKD-EPI)AfAm Est GFR (CKD-EPI)NonAf Random Glucose Lactic Acid 1.1 Calcium Phosphorus Magnesium Total Bilirubin AST ALT Alkaline Phosphatase Total Protein Albumin Urine Color Urine Appearance Urine pH Ur Specific [place] Urine Protein Urine Glucose (UA) Urine Ketones Urine Blood Urine Nitrite Urine Bilirubin Urine Urobilinogen Ur Leukocyte Esterase Urine WBC (Auto) Urine RBC (Auto) Urine Casts (Auto) U Epithel Cells (Auto) Urine Bacteria (Auto) Urine HCG, Qual Opiates Screen Methadone Screen Barbiturate Screen Phencyclidine Screen Ur Amphetamines Screen MDMA (Ecstasy) Screen Benzodiazepines Screen Cocaine Screen U Marijuana (THC) Screen Blood Type Antibody Screen 06/11/19 06/12/19 06/12/19 22:40 00:00 00:00 WBC RBC Hgb Hct MCV MCH MCHC RDW Plt Count MPV PT with INR INR PTT (Actin FS) Sodium Potassium Chloride Carbon Dioxide Anion Gap BUN Creatinine Est GFR (CKD-EPI)AfAm Est GFR (CKD-EPI)NonAf Random Glucose Lactic Acid Calcium Phosphorus Magnesium Total Bilirubin AST ALT Alkaline Phosphatase Total Protein Albumin Urine Color Dk yellow Urine Appearance Cloudy Urine pH 5.5 Ur Specific [place] 1.028 Urine Protein Trace Urine Glucose (UA) Negative Urine Ketones Trace H Urine Blood Negative Urine Nitrite Positive H Urine Bilirubin 1+ H Urine Urobilinogen 1.0 Ur Leukocyte Esterase 1+ H Urine WBC (Auto) 10 Urine RBC (Auto) 2 Urine Casts (Auto) 10 U Epithel Cells (Auto) 10.9 Urine Bacteria (Auto) 445.3 Urine HCG, Qual Negative Opiates Screen Methadone Screen Barbiturate Screen Phencyclidine Screen Ur Amphetamines Screen MDMA (Ecstasy) Screen Benzodiazepines Screen Cocaine Screen U Marijuana (THC) Screen Blood Type O POSITIVE Antibody Screen Negative 06/12/19 06/13/19 13:37 20:30 WBC RBC Hgb Hct MCV MCH MCHC RDW Plt Count MPV PT with INR INR PTT (Actin FS) Sodium Cancelled Potassium Cancelled Chloride Cancelled Carbon Dioxide Cancelled Anion Gap Cancelled BUN Cancelled Creatinine Cancelled Est GFR (CKD-EPI)AfAm Cancelled Est GFR (CKD-EPI)NonAf Cancelled Random Glucose Cancelled Lactic Acid Calcium Cancelled Phosphorus Cancelled Magnesium Cancelled Total Bilirubin Cancelled AST Cancelled ALT Cancelled Alkaline Phosphatase Cancelled Total Protein Cancelled Albumin Cancelled Urine Color Urine Appearance Urine pH Ur Specific [place] Urine Protein Urine Glucose (UA) Urine Ketones Urine Blood Urine Nitrite Urine Bilirubin Urine Urobilinogen Ur Leukocyte Esterase Urine WBC (Auto) Urine RBC (Auto) Urine Casts (Auto) U Epithel Cells (Auto) Urine Bacteria (Auto) Urine HCG, Qual Opiates Screen Positive A* Methadone Screen Negative Barbiturate Screen Negative Phencyclidine Screen Negative Ur Amphetamines Screen Negative MDMA (Ecstasy) Screen Negative Benzodiazepines Screen Negative Cocaine Screen Negative U Marijuana (THC) Screen Negative Blood Type Antibody Screen Discharge Medications Medication Instructions Recorded Amoxicillin/Potassium Clav 1 each PO BID 10 Days #20 tablet 06/14/19 [Augmentin 875-125 Tablet] Date of Admission:06/11/19 Date of Discharge: 06/14/19 Minutes to complete discharge: 45 Discharge Summary Problems reviewed: Yes Reason For Visit: SEPSIS, ABCESS, CELLULITIS OF LEFT ABDOMINAL WALL Hospital Course: 28 year old female with history of IV Heroin Use, presents with abdominal wall erythema/tenderness with pustular exudate, progressive over past week after suspected spider bite. She initially declined I and D by surgery, however finally agreed and underwent I and D this AM. Subsequent to I and D procedure, she decided to leave against medical advice. She was explained all risks of doing so including worsening sepsis/septic shock, and progressive withdrawal symptoms. 1. Sepsis secondary to LLQ Abdominal Wall Cellulitis with Abscess s/p I and D Fever resolved, Hemodynamicaly Stable. Leukocytosis + Treated with IV Zosyn/Vancomycin Blood Cx negative Abdominal Wound/Surgical Cx pending Patient does not want to stay for any further IV Abx therapy. She wants to leave AMA. Will give course of Augmentin on discharge - advised to follow with Surgery JANET for wound care and follow up. 2. Heroin Use Addiction medicine Consulted - on Methadone taper detox. Currently not actively withdrawing and fully competent to make medical decisions. 3. UTI. Dysuria, Urine Cx positive for Ecoli. Prescribed course of Augmentin for cellulitis - will cover UTI. DVT Px - Lovenox SQ. Condition: Stable - Instructions Diet, Activity, Other Instructions: YOU WERE ADMITTED FOR CELLULITIS WITH ABDOMINAL WALL ABSCESS AND UNDERWENT INCISION AND DRAINAGE BY SURGERY YOU WERE ADVISED NOT TO LEAVE THE HOSPITAL. YOU CHOSE TO LEAVE AGAINST MEDICAL ADVISE AND ACCEPTED ALL RISKS OF DOING SO BY SIGNING AMA PAPERWORK. ANTIBIOTICS WERE SENT TO YOUR PHARMACY FOR YOUR CELLULITIS AND UTI PLEASE FOLLOW WITH YOUR PCP AND WITH SURGEON PLEASE FOLLOW WITH YOUR PCP JANET FOR WOUND CARE. PLEASE KEEP CLEAN AND DRY. FURTHER WOUND CARE ADVICE PER SURGERY Referrals: Gino Bar MD [Staff Physician] - 1 Week Disposition: AGAINST MEDICAL ADVICE - Home Medications Comprehensive Discharge Medication List: Ambulatory Orders Amoxicillin/Potassium Clav [Augmentin 875-125 Tablet] 1 each PO BID 10 Days #20 tablet 06/14/19 This patient is new to me today: No Emergency Visit: Yes ED Registration Date: 06/11/19 Care time: The patient presented to the Emergency Department on the above date and was hospitalized for further evaluation of their emergent condition. Critical Care patient: No - Discharge Referral Referred to [facility] Med P.C.: No
[2019-06-14] MEDS ORDERED: PIPERACILLIN/TAZOB 3.375 GM 3.375 GM in DEXTROSE 5%-WATER - 50 ML IVPB SCH (18:00)
[2019-06-14] MEDS ORDERED: POLYETHYLENE GLYCOL 3350 119 GM BTL PO SCH (22:00)
[2019-06-15] MEDS ORDERED: NICOTINE 14 MG/24 HOURS TOPICAL PATCH TD SCH (10:00)
[2019-06-15] MEDS ORDERED: METHADONE 10 MG, METHADONE 5 MG PO ONE ×2 (10:00)
[2019-06-15] MEDS ORDERED: ENOXAPARIN NA (PORCINE) 40 MG/0.4 ML DISP.SYRIN SQ SCH (10:00)
--- NOTE | 2019-06-15 12:20 | OP ---
DATE OF OPERATION: 06/14/2019 PREOPERATIVE DIAGNOSIS: Complex abscess and soft tissue infection of the left abdominal wall. POSTOPERATIVE DIAGNOSIS: Complex abscess and soft tissue infection of the left abdominal wall. PROCEDURE: Incision and drainage of complex abscess of the left abdominal wall. SURGEON: Gino Bar MD ANESTHESIA: General. OPERATIVE FINDINGS: There was a soft tissue abscess of the left abdominal wall involving the skin and subcutaneous tissue down to, but not invading, the peritoneal cavity. The rest of the findings were unremarkable. DESCRIPTION OF PROCEDURE: The patient was placed on the operating room table in supine position. After the induction of general anesthesia, the patient's abdomen was prepped with ChloraPrep and draped in sterile fashion. Time-out was taken, and the scalpel incision was carried out over the area of fluctuance. All loculations were broken up using blunt dissection, and purulent drainage was sent for culture and sensitivity. Copious irrigation was carried out with saline and peroxide and hemostasis assured with electrocautery and the wound packed with 1-inch iodoform gauze followed by dry sterile dressings and the procedure terminated at this point. Patient aroused from general anesthesia and transferred to the post anesthesia care unit in stable condition awake and alert. ESTIMATED BLOOD LOSS: 10 mL. REPLACEMENTS: Crystalloid. DRAINS: None. SPECIMEN: Culture and sensitivity of drainage to Microbiology. I, Gino Bar, was physically present in the operating room from the time the patient was placed on the operating room table until she was transferred to the post anesthesia care unit in my accompaniment. MD DEBBIE Miles/[id number] MTDD
[2019-06-16] MEDS ORDERED: METHADONE HCL 10 MG TABLET PO ONE (10:00)
[2019-06-17] MEDS ORDERED: METHADONE HCL 5 MG TABLET PO ONE (06:00)
== END 2019-06-14 14:42 | disposition left against medical advice (07) | DRG 710 ==
LOC: JER 21:24 → JERBED 23:21 → J5S 06-12 03:07
PROVIDERS: ADMIT Internal Medicine
PROC: 0W3F0ZZ Control Bleeding in Abdominal Wall, Open Approach (ICD-10-PCS; 2019-06-14)
PROC: 0J980ZX Drainage of Abdomen Subcutaneous Tissue and Fascia, Open Approach, Diagnostic (ICD-10-PCS; principal; 2019-06-14 09:30)
DX: A41.89 Other specified sepsis (principal); L02.211 Cutaneous abscess of abdominal wall; D72.829 Elevated white blood cell count, unspecified; L03.311 Cellulitis of abdominal wall; F17.210 Nicotine dependence, cigarettes, uncomplicated; L53.9 Erythematous condition, unspecified; R10.9 Unspecified abdominal pain; S30.861A Insect bite (nonvenomous) of abdominal wall, initial encounter; F10.20 Alcohol dependence, uncomplicated; R11.0 Nausea; R68.83 Chills (without fever); F11.10 Opioid abuse, uncomplicated; N39.0 Urinary tract infection, site not specified; E66.8 Other obesity; Z68.32 Body mass index [BMI] 32.0-32.9, adult
CPT/HCPCS: 36415; 71045-TC-FY; 80053; 80307; 81003; 83605; 84703; 85027; 85610; 85730; 86850; 86900; 86901; 87040; 87070; 87077; 87086; 87186; 87205; 93005; 93010; 94760; 99284-25; J0131; J7030

== ENCOUNTER 2019-06-17 11:19 | Emergency (ER) | payer OTHER ==
[2019-06-17 11:34] VITALS: BP 107/60; PULSE 77; TEMP 98.2; BMI 33.3
--- NOTE | 2019-06-17 12:09 | PDOC ---
History of Present Illness - General Chief Complaint: Wound Stated Complaint: WOUND CARE Time Seen by Provider: 06/17/19 11:40 - History of Present Illness Initial Comments: 06/17/19 12:09 28-year-old female presents for evaluation of a wound check. 4 days ago she had a formal incision and drainage done of an abdominal abscess from a spider bite was admitted to the hospital placed on IV antibiotics and signed herself out because of a sick family member. She comes today for a wound check. She is been feeling better Past History - Past Medical History Allergies/Adverse Reactions: Allergies Allergy/AdvReac Type Severity Reaction Status Date / Time No Known Allergies Allergy Verified 06/17/19 11:34 Home Medications: Ambulatory Orders Amoxicillin/Potassium Clav [Augmentin 875-125 Tablet] 1 each PO BID 10 Days #20 tablet 06/14/19 Anemia: No Asthma: No Cancer: No Cardiac Disorders: No CVA: No COPD: No CHF: No DVT: No Dementia: No Diabetes: No Dialysis: No GI Disorders: No Disorders: No HTN: No Hypercholesterolemia: No Kidney Stones: No Liver Disease: No Psychiatric Problems: No Seizures: No Thyroid Disease: No Lung CA: No - Immunization History Immunization Up to Date: Yes - Psycho Social/Smoking Cessation Hx Smoking History: Never smoked Number of Cigarettes Smoked Daily: 20 Information on smoking cessation initiated: No 'Breaking Loose' booklet given: 06/12/19 Hx Alcohol Use: No Drug/Substance Use Hx: No *Physical Exam - Vital Signs Last Vital Signs Temp Pulse Resp BP Pulse Ox 98.2 F 77 19 107/60 100 06/17/19 11:32 06/17/19 11:32 06/17/19 11:32 06/17/19 11:32 06/17/19 11:32 - Physical Exam Comments: 06/17/19 12:10 The dressing was removed from the left lower abdomen. Packing was removed the wound appears to be granulating. There is mild erythema surrounding the edges. Medical Decision Making - Medical Decision Making 06/17/19 12:04 Dr Bar called 06/17/19 12:51 2nd call placed 06/17/19 13:17 I discussed this case with Dr. Bar who is also evaluated the patient. Wet-to -dry dressing was placed as per his instructions. Changing the dressing twice daily supplies were given to the patient she will follow-up in the office in 3 to 4 days. Continue with antibiotics. Discharge - Discharge Information Problems reviewed: Yes Clinical Impression/Diagnosis: Wound check, abscess Condition: Stable Disposition: HOME - Admission No - Follow up/Referral - Patient Discharge Instructions Additional Instructions: Continue with wet-to-dry dressing changes twice daily as he was shown in the emergency room. Tylenol and Motrin as directed for pain. Continue the antibiotics and finish the entire course. Please follow-up with Dr. Bar in 3 to 4 days for further evaluation and treatment options and return to the emergency room should symptoms worsen or should you have further issues. - Post Discharge Activity
== END 2019-06-17 13:19 | disposition home or self-care (01) ==
LOC: JERFT 11:19
DX: Z48.00 Encounter for change or removal of nonsurgical wound dressing (principal)
CPT/HCPCS: 99282-25